=== PATIENT | male | born 1990 | race Caucasian/White ===

== ENCOUNTER 2016-09-09 13:56 | Emergency (ER) | payer MEDICAID ==
--- NOTE | 2016-09-09 17:52 | EDPHY ---
H & P Smoking Status: Current every day smoker Time Seen by Provider: 09/09/16 15:34 HPI/ROS: CHIEF COMPLAINT: Neck pain HISTORY OF PRESENT ILLNESS: 26-year-old male presents to the emergency department complaining of right-sided neck pain over last 24 hours. The patient thinks that he slept funny on his neck and now has pain especially with range of motion. Is isolated just to the right side. Patient is concerned because he has a history of a previous broken cervical spine from the police 2 years ago. He has not had follow-up for this. He denies chest pain or difficulty breathing. Denies headache. Denies any other reported trauma. Denies paresthesias in upper lower extremities. REVIEW OF SYSTEMS: Constitutional: No fever, no chills. Eyes: No double or blurry vision. ENT: No sore throat. Respiratory: No cough, no shortness of breath. Cardiac: No chest pain. Gastrointestinal: No abdominal pain, vomiting or diarrhea. Genitourinary: No dysuria. Musculoskeletal: Neck pain as above. No back pain. Skin: No rashes. Neurological: No headache. (Nanda Bloom) Past Medical/Surgical History: Bipolar, schizophrenia, hepatitis C (Nanda Bloom) Social History: Single (Nanda Bloom) Physical Exam: General Appearance: Alert, no distress. No visible signs of trauma to his head. Patient refused vital signs. Eyes: Pupils equal and round. Extraocular motions are all intact. ENT: Mouth: Mucous membranes moist. Respiratory: No wheezing, rhonchi, or rales, lungs are clear to auscultation. Cardiovascular: Regular rate and rhythm. Gastrointestinal: Abdomen is soft and nontender, no masses, no rebound or guarding, bowel sounds normal. Neurological: Alert and oriented x 3, cranial nerves II through XII grossly intact Skin: Warm and dry, no rashes. Musculoskeletal: No palpable bony tenderness along cervical spine. No palpable crepitus noted. Pain with laterally bending his neck to the left and right. Pain with rotation especially to his right shoulder. Extremities: Full range of motion and no peripheral edema. Normal and equal strength for the upper extremities bilaterally. Psychiatric: Patient is oriented X 3, there is no agitation. (Nanda Bloom) Constitutional: O2 Delivery Mode Room Air Allergies/Adverse Reactions: No Known Allergies Allergy (Verified 09/09/16 14:06) Home Medications: Medication Instructions Recorded Cyclobenzaprine [Flexeril] 10 mg PO TIDPRN PRN #12 tab 09/09/16 Medical Marijuana 09/09/16 Medical Decision Making - Diagnostics Imaging: Discussed imaging studies w/ extension clerk Radiologist, I viewed and interpreted images myself ED Course/Re-evaluation: 26-year-old male presents to the emergency department with neck pain. Patient has some mild pain with palpation along the lateral aspect of the right side of his neck. X-rays were obtained given his past history of possible cervical spine fracture. X-rays were negative. Patient will be discharged with muscle relaxers and anti-inflammatories. He was given primary care referral. I do not think any other imaging is necessary. (Nanda Bloom) Differential Diagnosis: Including but not limited to torticollis, fracture, dislocation, contusion, sprain (Nanda Bloom) Other Provider: The patient was evaluated and managed by the Physician Gas And Oil Checker/ Nurse Practitioner. My co-signature indicates that I have reviewed this chart and I agree with the findings and plan of care as documented. I am the secondary supervising physician. (Tonja Gonzales) Departure - Departure Disposition: Home, Routine, Self-Care Clinical Impression: Acute torticollis Condition: Good Instructions: Spasmodic Torticollis (ED) Additional Instructions: Ibuprofen 600 mg every 8 hours as needed for pain. Flexeril as needed for muscular spasm. Activity as tolerated. Follow up with [facility] this week to recheck. Return if you developed worsening neck pain, numbness or tingling in her fingers, or if you feel worse in any way. Referrals: [facility],. [Clinic] - As per Instructions Prescriptions: Cyclobenzaprine [Flexeril] 10 mg PO TIDPRN PRN #12 tab PRN Reason: Spasms
== END 2016-09-09 18:11 | disposition home or self-care (01) ==
DX: M43.6 Torticollis (principal); F17.200 Nicotine dependence, unspecified, uncomplicated

== ENCOUNTER 2016-12-25 13:26 | Emergency (ER) | payer MEDICAID ==
[2016-12-25] MEDS ORDERED: OLANZapine DISINTEGR 5 MG TAB PO ONE (13:56)
--- NOTE | 2016-12-25 13:58 | EDPHY ---
HPI/HX/ROS/PE/MDM Narrative: CHIEF COMPLAINT: Altered mental status, M1 hold HPI: The patient is a 26-year-old male with known history of schizophrenia. He is brought to the emergency department by [employer] on an M1 hold. He was apparently found confused and hallucinating in the [employer] [place]. Police was contacted and he appeared extremely disoriented and unable to care for self. Further history is unobtainable from patient. REVIEW OF SYSTEMS: Unable to obtain secondary to AMS. PMH: Schizophrenia SOCIAL HISTORY: Per chart, history of polysubstance abuse. PHYSICAL EXAM: General:Patient is alert, in no acute distress. 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 Further exam made difficult by patient non-cooperation. Maladorous and unkempt. ENT:Eyes are normal to inspection. ENT inspection normal. Neck: Normal inspection. Full range of motion. Respiratory:No respiratory distress. Extremities: Normal appearance. Full range of motion. Normal gait. Neuro: Oriented x3. Normal motor function. Normal sensory function. (Shaun Grant) ED Course: Care assumed from Juanita at 1430 with psych evaluation pending. 2038: The patient had comprehensive mental health evaluation and is the recommendation of the game artist and the [facility] consultant psychiatrist Dr. Chan that hold be vacated, and discharge the patient with outpatient follow-up. Does not appear to meet criteria for 72 hour mental health hold at this time. ( Erick Milton) - Data Points Laboratory Results: Laboratory Results 12/25/16 13:45 12/25/16 13:45 12/25/16 12/25/16 12/25/16 14:35 13:45 13:45 WBC 6.95 10^3/uL 10^3/uL (3.80-9.50) RBC 5.37 10^6/uL 10^6/uL (4.40-6.38) Hgb 14.9 g/dL g/dL (13.7-17.5) Hct 45.7 % % (40.0-51.0) MCV 85.1 fL fL (81.5-99.8) MCH 27.7 pg L pg (27.9-34.1) MCHC 32.6 g/dL g/dL (32.4-36.7) RDW 12.9 % % (11.5-15.2) Plt Count 239 10^3/uL 10^3/uL (150-400) MPV 9.5 fL fL (8.7-11.7) Neut % (Auto) 49.6 % % (39.3-74.2) Lymph % (Auto) 39.1 % % (15.0-45.0) [place] % (Auto) 9.1 % % (4.5-13.0) Eos % (Auto) 1.3 % % (0.6-7.6) Baso % (Auto) 0.6 % % (0.3-1.7) Nucleat RBC Rel Count 0.0 % % (0.0-0.2) Absolute Neuts (auto) 3.45 10^3/uL 10^3/uL (1.70-6.50) Absolute Lymphs (auto) 2.72 10^3/uL 10^3/uL (1.00-3.00) Absolute Monos (auto) 0.63 10^3/uL 10^3/uL (0.30-0.80) Absolute Eos (auto) 0.09 10^3/uL 10^3/uL (0.03-0.40) Absolute Basos (auto) 0.04 10^3/uL 10^3/uL (0.02-0.10) Absolute Nucleated RBC 0.00 10^3/uL 10^3/uL (0-0.01) Immature Gran % 0.3 % % (0.0-1.1) Immature Gran # 0.02 10^3/uL 10^3/uL (0.00-0.10) Sodium 142 mEq/L mEq/L (134-144) Potassium 4.0 mEq/L mEq/L (3.5-5.2) Chloride 104 mEq/L mEq/L (97-110) Carbon Dioxide 23 mEq/l mEq/l (22-31) Anion Gap 15 mEq/L mEq/L (8-16) BUN 17 mg/dL mg/dL (7-23) Creatinine 0.9 mg/dL mg/dL (0.7-1.3) Estimated GFR > 60 Glucose 90 mg/dL mg/dL (70-100) Calcium 9.9 mg/dL mg/dL (8.5-10.4) Urine Opiates Screen NEGATIVE (NEGATIVE) Urine Barbiturates NEGATIVE (NEGATIVE) Ur Phencyclidine Scrn NEGATIVE (NEGATIVE) Ur Amphetamine Screen NEGATIVE (NEGATIVE) U Benzodiazepines Scrn NEGATIVE (NEGATIVE) Urine Cocaine Screen NEGATIVE (NEGATIVE) U Marijuana (THC) Screen NON-NEGATIVE H (NEGATIVE) Ethyl Alcohol < 10 mg/dL mg/dL (0-10) Medications Given: Discontinued Medications Olanzapine (Zyprexa Zydis) 5 mg PO EDNOW ONE Stop: 12/25/16 13:57 Last Admin: 12/25/16 14:22 Dose: 5 mg General Time Seen by Provider: 12/25/16 13:49 Initial Vital Signs: Initial Vital Signs Temperature (C) 36.8 C 12/25/16 13:53 Heart Rate 95 12/25/16 13:53 Respiratory Rate 16 12/25/16 13:53 Blood Pressure 108/74 12/25/16 13:53 O2 Sat (%) 98 12/25/16 13:53 O2 Delivery Mode Room Air Allergies/Adverse Reactions: No Known Allergies Allergy (Verified 09/09/16 14:06) Home Medications: Medication Instructions Recorded Cyclobenzaprine [Flexeril] 10 mg PO TIDPRN PRN #12 tab 09/09/16 Medical Marijuana 09/09/16 Departure - Departure Disposition: Home, Routine, Self-Care Clinical Impression: Schizoaffective disorder Qualifiers: Schizoaffective disorder type: unspecified Qualified Code(s): F25.9 - Schizoaffective disorder, unspecified Condition: Good Instructions: Schizoaffective Disorder (ED) Referrals: [facility],. [Clinic] - As per Instructions
[2016-12-25 14:04] LABS: % IMMATURE GRANULYOCYTES 0.3 % (0.0-1.1); ABSOLUTE IMMATURE GRANULOCYTES 0.02 10^3/uL (0.00-0.10); ADD DIFF? NO; ADD MORPH? NO; ADD SCAN? NO; ATYPICAL LYMPHOCYTE FLAG 20 (0-99); FRAGMENT RBC FLAG 0 (0-99); HEMATOCRIT 45.7 % (40.0-51.0); HEMOGLOBIN 14.9 g/dL (13.7-17.5); LEFT SHIFT FLG 0 (0-99); LIPEMIA HEMOLYSIS FLAG 80 (0-99); MEAN CELL HEMOGLOBIN 27.7 pg (27.9-34.1); MEAN CELL HEMOGLOBIN CONCENTR. 32.6 g/dL (32.4-36.7); MEAN CELL VOLUME 85.1 fL (81.5-99.8); MEAN PLATELET VOLUME 9.5 fL (8.7-11.7); PLATELET CLUMPS FLAG 10 (0-99); PLATELET COUNT 239 10^3/uL (150-400); RED BLOOD CELL COUNT 5.37 10^6/uL (4.40-6.38); RED CELL DISTRIBUTION WIDTH 12.9 % (11.5-15.2)
[2016-12-25 14:15] LABS: ANION GAP 15 mEq/L (8-16); CALCIUM 9.9 mg/dL (8.5-10.4); CARBON DIOXIDE 23 mEq/l (22-31); CHLORIDE 104 mEq/L (97-110); CREATININE 0.9 mg/dL (0.7-1.3); ETHANOL SERUM < 10 mg/dL (0-10); GLOMERULAR FILTRATION RATE > 60; GLUCOSE 90 mg/dL (70-100); SODIUM 142 mEq/L (134-144)
[2016-12-25 16:14] VITALS: RESP 18
[2016-12-25 21:35] VITALS: BP 134/84; PULSE 86; TEMP 97.9; O2SAT 95
== END 2016-12-25 21:37 | disposition home or self-care (01) ==
DX: F25.9 Schizoaffective disorder, unspecified (principal)
CPT/HCPCS: 80305; G0480

== ENCOUNTER 2017-03-03 16:18 | Emergency (ER) | payer MEDICAID ==
--- NOTE | 2017-03-03 16:31 | EDPHY ---
H & P Stated Complaint: M1 - Failure to care for self - Personal History Current Tetanus Diphtheria and Acellular Pertussis (TDAP): Yes Tetanus Vaccine Date: Within 7 years per pt - Medical/Surgical History Hx Asthma: No Hx Chronic Respiratory Disease: No Hx Diabetes: No Hx Cardiac Disease: No Hx Renal Disease: No Hx Cirrhosis: No Hx Alcoholism: No Hx HIV/AIDS: No Hx Splenectomy or Spleen Trauma: No Other PMH: PMH: Bipolar,schizophrania, hep C, schizo affective disorder, depression. PSH: left wrist surgery - Social History Smoking Status: Current every day smoker Time Seen by Provider: 03/03/17 16:20 HPI/ROS: CHIEF COMPLAINT: "Don't take my spirit away" HISTORY OF PRESENT ILLNESS: 26-year-old male known history of schizophrenia, homelessness, arrives on M1 hold for being gravely disabled. History is limited from the patient self is repeatedly talks about his spirit. Denies illicit drug or alcohol use. He denies complaints of physical pain. Denies suicidal ideation. Denies homicidal ideation. Per the M1 report the patient has been noncompliant with medications, states that he was up all night texting nonsensically with his father, went to his father's place of business an lb on the door, screaming profanities REVIEW OF SYSTEMS: A ten point review of systems was performed and is negative with the exception of the items mentioned in the HPI PAST MEDICAL & SURGICAL HISTORY: Schizophrenia. SOCIAL HISTORY: homeless. PHYSICAL EXAM (Prior to examination, patient consented to physical exam, hands were washed and my usual and customary physical exam procedures followed) 1) GENERAL: Poorly kept, foul smelling, dirty, rapid, flight of ideas 2) HEAD: Normocephalic, atraumatic 3) HEENT: Pupils equal, round, reactive to light bilaterally. Sclera anicteric. 4) NECK: Full range of motion, no meningeal signs. 5) LUNGS: Clear auscultation bilaterally, no wheezes, no rhonchi, no retractions. 6) HEART: Regular rate and rhythm, no murmur, no heave, no gallop. 7) ABDOMEN: No guarding, no rebound, no focal tenderness,, 8) MUSCULOSKELETAL: Moving all extremities, no focal areas of tenderness, no obvious trauma. No peripheral edema or discoloration. 9) BACK: no visual or palpable abnormality. 10) SKIN: No rash, no petechiae. 11) Psychiatric: Patient is oriented X 3, he is intermittently, with rapid speech, flight of ideas, appears to be responding to internal stimuli DIFFERENTIAL DIAGNOSIS: in no particular include but limited to jaime, psychosis, depression, suicidal ideation, homicidal ideation (Chase Fuller Natalee) Constitutional: Initial Vital Signs Temperature (C) 37.1 C 03/03/17 16:23 Heart Rate 85 03/03/17 16:23 Respiratory Rate 18 03/03/17 16:23 Blood Pressure 130/65 H 03/03/17 16:23 O2 Sat (%) 98 03/03/17 16:23 O2 Delivery Mode Room Air Allergies/Adverse Reactions: No Known Allergies Allergy (Verified 09/09/16 14:06) Home Medications: Medication Instructions Recorded NK [No Known Home Meds] 03/03/17 Medical Decision Making ED Course/Re-evaluation: 10:30 p.m.: Mental health global head advertiser solutions has recommended patient be admitted. Midnight: Care turned over to Dr. Juan Martines. (Chase Fuller Natalee) Patient has been accepted by Dr. Escobedo, at [facility]. EMTALA filled out. Appropriate transfer to be set up. (Juan Martines) - Data Points Laboratory Results: Laboratory Results 03/03/17 17:05 03/03/17 17:05 03/03/17 03/03/17 03/03/17 17:05 17:05 17:05 WBC 6.04 10^3/uL 10^3/uL (3.80-9.50) RBC 5.10 10^6/uL 10^6/uL (4.40-6.38) Hgb 14.3 g/dL g/dL (13.7-17.5) Hct 43.8 % % (40.0-51.0) MCV 85.9 fL fL (81.5-99.8) MCH 28.0 pg pg (27.9-34.1) MCHC 32.6 g/dL g/dL (32.4-36.7) RDW 13.2 % % (11.5-15.2) Plt Count 245 10^3/uL 10^3/uL (150-400) MPV 9.1 fL fL (8.7-11.7) Neut % (Auto) 54.4 % % (39.3-74.2) Lymph % (Auto) 34.9 % % (15.0-45.0) [place] % (Auto) 9.3 % % (4.5-13.0) Eos % (Auto) 0.5 % L % (0.6-7.6) Baso % (Auto) 0.7 % % (0.3-1.7) Nucleat RBC Rel Count 0.0 % % (0.0-0.2) Absolute Neuts (auto) 3.29 10^3/uL 10^3/uL (1.70-6.50) Absolute Lymphs (auto) 2.11 10^3/uL 10^3/uL (1.00-3.00) Absolute Monos (auto) 0.56 10^3/uL 10^3/uL (0.30-0.80) Absolute Eos (auto) 0.03 10^3/uL 10^3/uL (0.03-0.40) Absolute Basos (auto) 0.04 10^3/uL 10^3/uL (0.02-0.10) Absolute Nucleated RBC 0.00 10^3/uL 10^3/uL (0-0.01) Immature Gran % 0.2 % % (0.0-1.1) Immature Gran # 0.01 10^3/uL 10^3/uL (0.00-0.10) Sodium 140 mEq/L mEq/L (134-144) Potassium 4.2 mEq/L mEq/L (3.5-5.2) Chloride 102 mEq/L mEq/L (97-110) Carbon Dioxide 25 mEq/l mEq/l (22-31) Anion Gap 13 mEq/L mEq/L (8-16) BUN 18 mg/dL mg/dL (7-23) Creatinine 1.3 mg/dL mg/dL (0.7-1.3) Estimated GFR > 60 Glucose 82 mg/dL mg/dL (70-100) Calcium 9.5 mg/dL mg/dL (8.5-10.4) Salicylates < 1.0 mg/dL L mg/dL (2.0-20.0) Urine Opiates Screen NEGATIVE (NEGATIVE) Acetaminophen < 10 mcg/mL L mcg/mL (10-30) Urine Barbiturates NEGATIVE (NEGATIVE) Ur Phencyclidine Scrn NEGATIVE (NEGATIVE) Ur Amphetamine Screen NEGATIVE (NEGATIVE) U Benzodiazepines Scrn NEGATIVE (NEGATIVE) Urine Cocaine Screen NEGATIVE (NEGATIVE) U Marijuana (THC) Screen NON-NEGATIVE H (NEGATIVE) Ethyl Alcohol < 10 mg/dL mg/dL (0-10) Medications Given: Discontinued Medications Lorazepam (Ativan) 2 mg PO EDNOW ONE Stop: 03/03/17 17:14 Last Admin: 03/03/17 18:44 Dose: Not Given Olanzapine (Zyprexa Zydis) 10 mg PO EDNOW ONE Stop: 03/03/17 16:44 Last Admin: 03/03/17 18:44 Dose: Not Given Departure - Departure Disposition: Other Psych, Not [place] Clinical Impression: Acute psychosis, Noncompliance with medication regimen Condition: Fair Referrals: NONE *PRIMARY CARE P,. [Primary Care Provider] - As per Instructions
[2017-03-03] MEDS ORDERED: OLANZapine DISINTEGR 10 MG TAB PO ONE (16:43)
[2017-03-03 17:08] LABS: % IMMATURE GRANULYOCYTES 0.2 % (0.0-1.1); ABSOLUTE IMMATURE GRANULOCYTES 0.01 10^3/uL (0.00-0.10); ADD DIFF? NO; ADD MORPH? NO; ADD SCAN? NO; ATYPICAL LYMPHOCYTE FLAG 10 (0-99); FRAGMENT RBC FLAG 0 (0-99); HEMATOCRIT 43.8 % (40.0-51.0); HEMOGLOBIN 14.3 g/dL (13.7-17.5); LEFT SHIFT FLG 0 (0-99); LIPEMIA HEMOLYSIS FLAG 80 (0-99); MEAN CELL HEMOGLOBIN CONCENTR. 32.6 g/dL (32.4-36.7); MEAN CELL VOLUME 85.9 fL (81.5-99.8); MEAN PLATELET VOLUME 9.1 fL (8.7-11.7); PLATELET CLUMPS FLAG 0 (0-99); PLATELET COUNT 245 10^3/uL (150-400); RED CELL DISTRIBUTION WIDTH 13.2 % (11.5-15.2)
[2017-03-03 17:11] VITALS: RESP 18
[2017-03-03] MEDS ORDERED: LORazepam 1 MG TAB PO ONE (17:13)
[2017-03-03 17:25] LABS: ANION GAP 13 mEq/L (8-16); CALCIUM 9.5 mg/dL (8.5-10.4); CARBON DIOXIDE 25 mEq/l (22-31); CHLORIDE 102 mEq/L (97-110); CREATININE 1.3 mg/dL (0.7-1.3); ETHANOL SERUM < 10 mg/dL (0-10); GLOMERULAR FILTRATION RATE > 60; GLUCOSE 82 mg/dL (70-100); POTASSIUM 4.2 mEq/L (3.5-5.2); SALICYLATE < 1.0 mg/dL (2.0-20.0); SODIUM 140 mEq/L (134-144)
[2017-03-04 02:48] VITALS: BP 118/64; PULSE 79; TEMP 97.5; O2SAT 96
== END 2017-03-04 03:28 ==
DX: F23 Brief psychotic disorder (principal); F17.200 Nicotine dependence, unspecified, uncomplicated; Z91.14 Patient's other noncompliance with medication regimen
CPT/HCPCS: 80305; G0480

== ENCOUNTER 2017-04-29 12:44 | Emergency (ER) | payer MEDICAID ==
[2017-04-29 13:09] VITALS: O2SAT 99
[2017-04-29 13:28] LABS: PLATELET COUNT 255 10^3/uL (150-400)
--- NOTE | 2017-04-29 14:18 | EDPHY ---
H & P Stated Complaint: M1 - manic - gravely disabled. - Personal History Current Tetanus/Diphtheria Vaccine: Yes Current Tetanus Diphtheria and Acellular Pertussis (TDAP): Yes Tetanus Vaccine Date: Within 7 years per pt - Medical/Surgical History Hx Asthma: No Hx Chronic Respiratory Disease: No Hx Diabetes: No Hx Cardiac Disease: No Hx Renal Disease: No Hx Cirrhosis: No Hx Alcoholism: No Hx HIV/AIDS: No Hx Splenectomy or Spleen Trauma: No Other PMH: PMH: Bipolar,schizophrania, hep C, schizo affective disorder, depression. PSH: left wrist surgery - Social History Smoking Status: Current every day smoker HPI/ROS: CHIEF COMPLAINT: M1 hold for jaime, inability to care for self HISTORY OF PRESENT ILLNESS: This patient is a 26 year old male with history of schizophrenia arriving via EMS on M1 hold for jaime. On my exam, he states he is here because he was rude to his care foster care social worker today and subsequently rude to a social worker psychiatric as well. He is pleasant currently. He states he is not taking any medication and is not supposed to be taking any medication. He denies suicidal or homicidal ideation. He denies visual or auditory hallucination. He is currently homeless, but wants to gain entrance to the [facility]. When asked about his recent hospitalization at [facility], the patient did not respond. Per M1 paperwork, the patient was gravely disabled and had disorganized thought. There was additional concern that he had not eaten or had anything to drink for several days. REVIEW OF SYSTEMS: A ten point review of systems was performed and is negative with the exception of the items mentioned in the HPI. Past medical history: Bipolar,schizophrenia, hepatitis C, schizoaffective disorder, depression Past surgical history: Left wrist surgery Family history: Noncontributory. Social history: Homeless. Lives in [place]. Single. General Appearance: Alert. Disheveled. Vital signs reviewed. 132/89, 102. Eyes: Pupils equal and round, no conjunctival injection, no discharge. Anicteric. ENT, Mouth: Mucous membranes are moist, no oropharyngeal erythema or edema. Neck: No lymphadenopathy, supple. Respiratory: Lungs are clear to auscultation; no wheezes, rales, or rhonchi. Cardiovascular: Regular rate and rhythm; no murmur, rub, or gallop. Gastrointestinal: Abdomen is soft and nontender, no masses or organomegaly, bowel sounds normal. Skin: Warm and dry, no rashes on exposed skin, normal color. Back: Nontender to palpation over the thoracolumbar spine. Extremities: No lower extremity edema, no calf tenderness or swelling. Neurological: Alert and oriented. Moving all four extremities easily and equally. Psychiatric: Normal affect. No agitation. (Shara Adler) Constitutional: Initial Vital Signs Temperature (C) 36.6 C 04/29/17 13:04 Heart Rate 102 H 04/29/17 13:04 Respiratory Rate 16 04/29/17 13:04 Blood Pressure 132/89 H 04/29/17 13:04 O2 Sat (%) 99 04/29/17 13:04 O2 Delivery Mode Room Air O2 (L/minute) 98 Allergies/Adverse Reactions: No Known Allergies Allergy (Verified 09/09/16 14:06) Home Medications: Medication Instructions Recorded NK [No Known Home Meds] 03/03/17 Medical Decision Making ED Course/Re-evaluation: 1223: This patient has been accepted at [facility] By Dr. Benjamin. EMTALA as been filled out. Appropriate transfer be set up. (Juan Martines) 14:25 Mental health director engineering at bedside. Patient is medically cleared to undergo mental health evaluation. (Shara Adler) Differential Diagnosis: Considered a differential diagnosis that includes but is not limited to medication noncompliance, bipolar disease, schizophrenia, auditory or visual hallucinations, suicidality, homicidality. (Shara Adler) Other Provider: 1600 care assumed by me from Dr. Adler pending mental health evaluation. [address] Martines pending mental health evaluation. No issues during my care this patient over the shift. (Sam Simon) Care transferred to Dr. Simon at 4:00 p.m.. (Shara Adler) - Data Points Laboratory Results: Laboratory Results 04/29/17 13:10 04/29/17 13:10 Departure - Departure Disposition: Other Psych, Not [place] Clinical Impression: Schizophrenia Referrals: Patient,NotPresent [Primary Care Provider] - As per Instructions Report Scribed for: Shara Adler Report Scribed by: Breana Nichole Date of Report: 04/29/17 Physician Review and Approval Statement: 04/29/17 14:18 Portions of this note were transcribed by the hospitalist medical director. I, Dr. Shara Adler, personally performed the history, physical exam, and medical decision- making; and confirmed the accuracy of the information in the transcribed note. ( Shara Adler)
[2017-04-29 21:10] VITALS: BP 100/50; PULSE 75; RESP 18; TEMP 97.5
== END 2017-04-30 02:26 ==
LOC: EDUNIT#
DX: F20.9 Schizophrenia, unspecified (principal); F17.200 Nicotine dependence, unspecified, uncomplicated
CPT/HCPCS: 80305; G0480

== ENCOUNTER 2017-10-29 16:27 | Inpatient (IN) | payer MEDICAID ==
--- NOTE | 2017-10-29 16:35 | EDPHY ---
H & P Source: Patient - Personal History Tetanus Vaccine Date: Within 7 years per pt - Medical/Surgical History Hx Asthma: No Hx Chronic Respiratory Disease: No Hx Diabetes: No Hx Cardiac Disease: No Hx Renal Disease: No Hx Cirrhosis: No Hx Alcoholism: No Hx HIV/AIDS: No Hx Splenectomy or Spleen Trauma: No Other PMH: PMH: Bipolar,schizophrania, hep C, schizo affective disorder, depression. PSH: left wrist surgery - Social History Smoking Status: Current every day smoker Time Seen by Provider: 10/29/17 16:35 HPI/ROS: CHIEF COMPLAINT: Gravely disabled HISTORY OF PRESENT ILLNESS: The patient presents to the ED secondary to grave disability. The patient reportedly was contacted by his mother today who was concerned about his well-being. The patient has a history of bipolar mood disorder by his report. Past medical records reports schizophrenia as a additional diagnosis. The patient reports he is typically followed at [facility]. He reports he does not take medications secondary to his personal choice. The patient denies any suicidal or homicidal ideation. Patient denies any acute medical complaints. He denies trauma. He denies active hallucinations. REVIEW OF SYSTEMS: A comprehensive 10 point review of systems is otherwise negative aside from elements mentioned in the history of present illness. (Elpidio Hutchinson) - Physical Exam Exam: General Appearance: Disheveled thin male Eyes: Pupils equal and round no pallor or injection ENT, Mouth: Mucous membranes moist Respiratory: There are no retractions, lungs are clear to auscultation Cardiovascular: Regular rate and rhythm Gastrointestinal: Abdomen is soft and nontender, no masses, bowel sounds normal Neurological: A&O, normal motor function, normal sensory exam, normal cranial nerves Skin: Warm and dry, no rashes Musculoskeletal: Neck is supple nontender Extremities: symmetrical, full range of motion Psychiatric: Disheveled, cooperative, denies suicidal or homicidal ideation, slightly disorganized (Elpidio Hutchinson) Constitutional: Initial Vital Signs Temperature (C) 36.6 C 10/29/17 16:35 Heart Rate 80 10/29/17 16:35 Respiratory Rate 20 10/29/17 16:35 Blood Pressure 134/82 H 10/29/17 16:35 O2 Sat (%) 96 10/29/17 16:35 O2 Delivery Mode Room Air Allergies/Adverse Reactions: No Known Allergies Allergy (Verified 09/09/16 14:06) Home Medications: Medication Instructions Recorded NK [No Known Home Meds] 03/03/17 Medical Decision Making ED Course/Re-evaluation: The patient presents to the ED secondary to grave disability. He was placed on an M1 psychiatric hold prior to arrival. The patient has been medically cleared for psychiatric evaluation. The patient did not require any medications in the emergency department. 9:00 p.m.: Psychiatric evaluation and disposition still pending. The patient will be turned over to Dr. Mclean at shift change. (Elpidio Hutchinson) I took over care of this patient at 9:00 p.m.. This patient is in the emergency department on an M1 hold secondary to grave disability. The patient has been medically cleared for psychiatric evaluation. Psychiatric evaluation pending currently. 11:00 p.m., this patient still awaits behavioral health evaluation. No issues during my care. Care turned over to Dr. Sam Simon at 11:00 p.m.. ( Cayden Mclean) Differential Diagnosis: Differential diagnosis considered includes psychosis, bipolar mood disorder, schizophrenia (Elpidio Hutchinson) Other Provider: [address] Mclean pending mental health evaluation. 2330 patient has been evaluated. Will require placement. [address] López pending placement. No issues during my care this patient overnight. (Sam Simon) - Data Points Laboratory Results: Laboratory Results 10/29/17 16:41 10/29/17 16:41 Departure - Departure Clinical Impression: Severe mixed bipolar I disorder with psychotic features Referrals: NONE *PRIMARY CARE P,. [Primary Care Provider] - As per Instructions
[2017-10-29 16:56] LABS: PLATELET COUNT 268 10^3/uL (150-400)
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
--- NOTE | 2017-10-29 23:19 | ASMTTCLDSP ---
TLC Discharge Disposition Disposition: Answers: Admit Disposition Notes: Notes: In consultation with [facility] ED Physician Nic Simon MD and on-call Psychiatrist Brian Yusuf MD both concurred that PT appears to meet 27-65 criteria requiring Psychiatric hospitalization as PT appears to be gravely disabled due to a mental illness condition. PT's rights were read to him,he was unable to sign. Discharge Concerns/Recommendations: Notes: In consultation with [facility] ED Physician Nic Simon MD and on-call Psychiatrist Brian Yusuf MD both concurred that PT appears to meet 27-65 criteria requiring Psychiatric hospitalization as PT appears to be gravely disabled due to a mental illness condition. PT's rights were read to him,he was unable to sign. Was patient given the Answers: Not applicable Inpatient Behavioral Health Prohibited Belongings List while in the ED? Type of Hold: Answers: M1/72-hour Hold Hold initiated by: Answers: Other Notes: Emmanuel Chawla LCSW Date Signed: 10/29/2017 11:18 PM Electronically Signed By:Elaine Ruby
[2017-10-30] MEDS ORDERED: ACETAMINOPHEN 325 MG TAB PO PRN (10:46)
[2017-10-30] MEDS ORDERED: MAGNESIUM HYDROXIDE 30 ML UDCUP PO PRN (10:46)
[2017-10-30] MEDS ORDERED: MAG HYDROX/AL HYDROX/SIMETH 30 ML UDCUP PO PRN (10:46)
[2017-10-30] MEDS ORDERED: LORazepam 1 MG TAB PO PRN (12:09)
[2017-10-30] MEDS ORDERED: LITHIUM CARBONATE ER 300 MG TAB PO SCH ×2 (12:15→21:00)
[2017-10-30] MEDS: NICOTINE POLACRILEX 2 MG GUM B PRN (12:40)
[2017-10-30] MEDS: OLANZapine DISINTEGR 10 MG TAB PO ONE ×2 (12:41→13:00)
[2017-10-30] MEDS: OLANZapine DISINTEGR 5 MG TAB PO ONE ×2 (12:41→13:00)
[2017-10-30] MEDS: LITHIUM CARBONATE ER 300 MG TAB PO SCH ×2 (12:42→20:14)
[2017-10-30] MEDS ORDERED: OLANZapine DISINTEGR 5 MG TAB PO PRN (12:53)
[2017-10-30] MEDS: QUEtiapine FUMARATE 50 MG TAB PO SCH ×2 (13:29→20:15)
[2017-10-30] MEDS ORDERED: HALOPERIDOL 10 MG TAB PO PRN (15:12)
[2017-10-30] MEDS ORDERED: HALOPERIDOL LACT 5 MG/ML INJ IM PRN (15:12)
[2017-10-30] MEDS ORDERED: LORazepam 2 MG/ML INJ IM PRN ×2 (15:14→15:22)
[2017-10-30] MEDS ORDERED: diphenhydrAMINE 50 MG CAP PO PRN ×2 (15:14→15:39)
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
[2017-10-30] MEDS: HALOPERIDOL 5 MG TAB PO PRN (15:25)
[2017-10-30] MEDS: LORazepam 1 MG TAB PO PRN (15:25)
[2017-10-30] MEDS ORDERED: OLANZapine DISINTEGR 10 MG TAB PO SCH (21:00)
--- NOTE | 2017-10-31 02:03 | BCON ---
[f rep st] BEHAVIORAL HEALTH CONSULTATION INTERNAL MEDICINE CONSULTATION DATE OF CONSULTATION: 10/30/2017 REFERRING PHYSICIAN: Rob Sosa MD REASON FOR REFERRAL: Medical clearance for inpatient behavioral health stay. HISTORY OF PRESENT ILLNESS: This patient was brought to the emergency department after his mother was concerned. I am not sure exactly how he got there. He was placed on M1 hold in the emergency department for being gravely disabled and he was evaluated by the mental health team and admitted for further psychiatric care. He has a psychiatric diagnoses of bipolar disorder with psychotic features versus schizophrenia and he is noncompliant with medications. He is currently without any acute complaints. He requests nicotine replacement in "a dissolvable solution." PAST MEDICAL HISTORY: 1. Mental health issues with diagnoses in the chart of bipolar disorder, schizophrenia, schizoaffective disorder, and depression. 2. Hepatitis C. PAST SURGICAL HISTORY: He has had a fractured left wrist with surgical repair. ALLERGIES: There are no known drug allergies. SOCIAL HISTORY: He lives in a house with roommates. He is not employed. He is a tobacco smoker and uses marijuana. FAMILY HISTORY: Noncontributory. REVIEW OF SYSTEMS: He denies fevers, chills, weight change, cough, dyspnea, nausea, vomiting, constipation, or diarrhea. Otherwise, a 10-point review of systems was negative. PHYSICAL EXAM: VITALS: Blood pressure is 133/75, heart rate is 66, respiratory rate is 16, oxygen saturation is 98% on room air. Temperature is 36.5 degrees centigrade. His weight is 54.4 kg for a body mass index of 19.4. GENERAL: This is a thin, unkempt man, appears his chronologic age, dressed in a green hospital smock, napping, easily awakened, cooperative and in no acute distress. HEENT: Extraocular movements are intact. Pupils are equal, round, reactive to light. Mucous membranes are moist. Dentition is in good condition. He has an uncrowded airway, Mallampati class I. NECK: Supple. HEART: Regular rate and rhythm with no murmurs, rubs, or gallops. LUNGS: Clear to auscultation bilaterally. ABDOMEN: Benign. EXTREMITIES: There is no cyanosis, clubbing, or edema. NEUROLOGIC: He is alert. Orientation was not tested. Cranial nerves 2 through 12 are grossly intact. There is no focal weakness and sensation is intact to light touch. LABORATORY STUDIES: From the emergency department, CBC overall was within normal limits. He had a slightly low MCH and MCHC of no clinical significance. Serum chemistry revealed normal renal function and electrolytes. Toxicology screen in the serum was negative for ethyl alcohol and in the urine was negative for any substances of abuse. ASSESSMENT AND RECOMMENDATIONS: 1. Mental health issues pending further evaluation and management per Psychiatry and the mental health team. 2. Tobacco dependence syndrome. Encouraged smoking cessation. 3. History of hepatitis C. He should avoid hepatic toxic drugs, though he can safely take acetaminophen up to 2 g per day. He should abstain from alcohol. I see no medical contraindications to this patient's continued stay on the inpatient behavioral health unit or to any psychiatric medications or procedures. Thank you very much for including me in the care of this patient and please do not hesitate to contact me or the hospitalist service should there be need for further medical evaluation. /[id number]/MODL MTDD
[2017-10-31] MEDS: LITHIUM CARBONATE ER 300 MG TAB PO SCH ×4 (07:46→18:00)
[2017-10-31] MEDS: QUEtiapine FUMARATE 50 MG TAB PO SCH ×3 (07:46→18:00)
[2017-10-31] MEDS: HALOPERIDOL 5 MG TAB PO PRN (07:56)
[2017-10-31] MEDS: LORazepam 1 MG TAB PO PRN (07:57)
--- NOTE | 2017-10-31 09:16 | ASMTBHMTP ---
LUTHER Master Treatment Plan Master Treatment Plan Answers: Mood Instability with for: Psychosis Date: 10/31/2017 Diagnosis on Admission: Bipolar I D/O with Psychotic Features 296.44 (F31.5) Expected length of stay: 3-5 Reason for admission: Notes: PT is a 27 year old unemployed, single, male, who states he is on disability and attending college at Per [facility] evaluation: [employer] and studying philosophy Per [employer] reports PT has a history of severe bipolar disorder with psychotic features with multiple hospitalizations since the age of 20. PT was unable to answer most of the assessment questions. PT became agitated and frustrate with the jboss developer and said he wanted to know why I couldn't "channel" the information. PT reported he lives in an house with 5 roommates. PT reports he doesn't take medications he is not suicidal or homicidal or gravely disabled. PT was laughing to himself and grimacing when asked questions. Patient's stated presenting problems: Notes: Pt. was staring at CC during the meeting and refused to engage and answer CC questions. Patient's goals for treatment: Notes: Pt. was staring at CC during the meeting and refused to engage and answer CC questions. Patient's strengths: Notes: Pt. was staring at CC during the meeting and refused to engage and answer CC questions. Identify supports outside of hospital: Notes: Unknown at this time. Discharge criteria: Notes: Pt. will demonstrate more stable mood by discharge. Initial disposition plan/considerations: Notes: Pt. presented as very disheveled with very strong body odor and unkempt long hair. Ct. refused to engage with this CC. Master Treatment Plan Required Signatures Psychiatrist signature: Answers: Psychiatrist: RN on-shift signature: Answers: RN: Patient signature: Answers: Patient: Date Signed: 10/31/2017 09:15 AM Electronically Signed By:Corry Callejas
--- NOTE | 2017-10-31 11:22 | SOAPPROG ---
SOAP Progress Note Assessment/Plan: Assessment: Bipolar Disorder with mood congruent psychotic features. Current jaime with psychosis. No improvement noted. (see subjective/objective note). Patient is not safe to discharge at this time as patient continues to exhibit signs of psychosis, and express agitation. Patient requires continued inpatient care because of current psychosis, and requires inpatient level of care to stabilize in order to no longer gravely disabled due to mental illness. Patient could benefit from continued inpatient hospitalization for crisis stabilization, safety, and medication evaluation. Plan: Review psychotropic medication treatment informed consent and recommendations. No medication changes at this time as more time is needed to determine ongoing tolerability and efficacy. Plan is to continue to observe patient for response and side effects from medications, and ongoing monitoring and evaluation. Next steps are for patient to meet with critical care rn to plan a safe discharge plan and establish outpatient services for ongoing treatment. Consider discharge next week if patient is in stable condition, safe, and has a safe discharge plan. PSYCHOTROPIC MEDICATION TREATMENT INFORMED CONSENT and RECOMMENDATIONS: Review nature of condition, diagnosis, and prognosis. Review nature and purpose of psychotropic medication treatment. Review type of psychotropic medications being ordered. Review risk and benefits of psychotropic medication treatment. Review probable length of time patient will need to take medications. Review risk and benefits of not undergoing psychotropic medication treatment. Review alternative treatments to psychotropic medications. Review psychotropic medications contraindications, drug-drug interactions, side effects, and importance of reporting any side effects to a psychiatric provider or nurse during inpatient hospitalization, and upon discharge to patients psychiatric outpatient provider, primary care provider, or other health animal care service worker. Review importance of asking a nurse, psychiatric provider, or primary care provider any questions or problems concerning the psychotropic medications. Verify patient understands the information that has been provided, and understands, accepts, and agrees to psychotropic medications. Review patients safety plan and importance of patient to report to staff while hospitalized if patient is ever a danger to self/others, or unable to care for self, and upon discharge, the importance for patient to contact [facility] or [facility], or go to the nearest emergency room, if patient is ever a danger to self/others, or unable to care for self. Recommend that upon discharge patient establish medication management treatment with a psychiatric provider, establishes routine therapy appointments, and follow-up with primary care provider. Verify patient understands and agrees to these recommendations. 10/31/17 11:21 Subjective: Following up with patient for evaluation of mood instability, psychosis, and safety. Patient screams, "My bill of rights is being threatened, I am a true [place]i, all I want is cannabis for me mental illness." Patient expresses the following psychiatric symptoms "super frustrated." Patient reports not taking medications as prescribed. Patient does not report undesirable side effects from the medications. Objective: Vital Signs Temp Pulse Resp BP Pulse Ox 36.5 C 66 16 133/75 H 98 10/30/17 08:51 10/30/17 08:51 10/30/17 08:51 10/30/17 08:51 10/30/17 08:51 NURSING REPORT: Consulted with nursing for update on patients progress in treatment. Nurses report patient is not engaged in treatment, is not attending groups, slept 7.5 hours, expresses the following psychiatric symptoms: agitation , exhibits the following psychiatric symptoms: disorganized, delusional; is eating meals, is taking not medications as prescribed with no report of side effects, with no s/s of EPS/akathisia. Nurses report patient required E-meds yesterday @ 1500 due to aggressive behavior on unit; patient required E-meds again this morning at ~ 0900 due to aggressive behavior. Patient refused AM scheduled medications. The patient is an under-nourished male looking older than chronological age. Attire is inappropriate and dress is hospital garb, and is disheveled and malodorous. Grooming status is inappropriate and disheveled and malodorous. Ambulation is independent. Gait is normal and coordinated. Posture is abnormal and tense. Eye contact is inappropriate, and excessive. Motor activity is overactive; with no involuntary movements. Attitude is uncooperative and hostile, angry. Patient appears disinterested and distractible, does not relate well to this interviewer. Language production is spontaneous. R/R/V normal. Rate is rapid, pressured. Latency of response is shortened, with irritable, angry tone, and high volume, and amount is hypertalkative. Articulation is clear. Patient reports mood as angry with expansive, inappropriate affect. Patients thought process is non-linear, illogical, disorganized, and tangential. Associations are loose. Patient does not report suicidal/homicidal thoughts, ideas, or plans. Patient denies auditory, visual hallucinations. Patient denies delusions; patient is exhibiting delusional thought and behavior. Patient does not appear to be attending to internal stimuli. Patients attention and concentration are poor. Patient is oriented to person, place, time. Patients insight is poor. Patients judgment is poor. - Time Spent With Patient Time Spent With Patient: 15 minutes, met with patient individually. - Pending Discharge Pending Discharge Within 24 Hours: No Pending Discharge Within 48 Hours: No ICD10 Worksheet Patient Problems: Problems Problem Status Onset Nicotine dependence Active Cannabis use disorder, severe, in controlled environment Acute Severe mixed bipolar I disorder with psychotic features Acute Severe manic bipolar I disorder with psychotic features Active
--- NOTE | 2017-10-31 12:22 | ASMTCMCOM ---
CM Note CM Note Notes: Ct. requested to speak with this CC. Ct. reported that he has an appointment with his [facility] manager of case Odessaaric Otoole on 11/04/17. He wanted to know if he would be able to make this appointment. CC explained that d/c depends on his progress and pending an MD decision. CC told ct. that if he is not ready to d/c on 11/04 CC will call [facility] and reschedule his appt. Ct. reported that he is having a hard time processing this information. Date Signed: 10/31/2017 12:21 PM Electronically Signed By:Corry Callejas
[2017-10-31] MEDS ORDERED: HALOPERIDOL LACT 5 MG/ML INJ IM PRN (15:12)
[2017-10-31] MEDS ORDERED: LORazepam 1 MG TAB PO PRN (15:14)
[2017-10-31] MEDS ORDERED: HALOPERIDOL 5 MG TAB PO PRN (15:14)
[2017-10-31] MEDS ORDERED: LORazepam 2 MG/ML INJ IM PRN (15:15)
--- NOTE | 2017-10-31 16:12 | PDMN ---
Medical Necessity Medical necessity: Pt meets inpt criteria per MD order and [facility] B-011, Other Psychotic Disorders, Adult: Inpatient Care, 3 days. Pt admitted on involuntary M1 hold due to being gravely disabled from current psychosis and mood instability which have been increasing and puts him at high safety risk, hx of bipolar disorder w/mood-congruent psychotic features. Med nec inpt hospitalization for safety, crisis stabilization, and medication evaluation.
[2017-10-31] MEDS: NICOTINE POLACRILEX 2 MG GUM B PRN ×3 (17:58→23:54)
[2017-11-01] MEDS: NICOTINE POLACRILEX 2 MG GUM B PRN ×4 (07:12→12:14)
[2017-11-01] MEDS: LITHIUM CARBONATE ER 300 MG TAB PO SCH ×3 (08:28→21:32)
[2017-11-01] MEDS: QUEtiapine FUMARATE 50 MG TAB PO SCH ×2 (08:29→12:56)
--- NOTE | 2017-11-01 15:06 | ASMTCMCOM ---
CM Note CM Note Notes: Pt. reports feeling "awful, angry and confused". Pt. stated he is a voluntary patient and will be discharging today. Pt. stated "this setting is too restricitive". Pt. reports "practicing observing budist". Pt. reports "hearing voices I like". Pt. reports when he "hears voices I don't like, I get help". Pt. stated his mother jumped out of the bushes at his place and asked him to come into the hospital this admission. Pt. stated he had sent him mother upsetting texts "when I was really baked". Pt. reports living in [place] with a "low income housing voucher". Pt. stated there was a break down in communication with the doctor, adding they had a debate about pt's medications. Pt. stated "anti-psychotics don't help. Cannibis does". Pt. stated "the doctor knows I need cannabis". Pt. stated in the past he would fill his anti-psychotic prescriptions and then flush them down the toilet. Pt. denied SI, HI, AVH and paranoia. Staff report pt. cheeking his medications twice today. Date Signed: 11/01/2017 03:05 PM Electronically Signed By:Jesenia Cerna
[2017-11-01] MEDS ORDERED: HALOPERIDOL LACT 5 MG/ML INJ IM PRN (18:07)
--- NOTE | 2017-11-01 18:18 | SOAPPROG ---
SOAP Progress Note Assessment/Plan: Assessment: Per Víctor Atkins's note: Assessment: Bipolar Disorder with mood congruent psychotic features. Current jaime with psychosis. No improvement noted. (see subjective/objective note). Patient is not safe to discharge at this time as patient continues to exhibit signs of psychosis, and express agitation. Patient requires continued inpatient care because of current psychosis, and requires inpatient level of care to stabilize in order to no longer gravely disabled due to mental illness. Patient could benefit from continued inpatient hospitalization for crisis stabilization, safety, and medication evaluation. Plan: 11/01/17 18:11 1. Patient has been in seclusion and received IM meds x 2. The last time was Friday d/t yelling, screaming, threatening and aggressive behavior after refusing to take medications. 2. RN reports that staff found [place] and Seroquel tabs in patient's wastebasket. RN then administered meds again, and did mouth check. RN heard patient flushing toilet very soon after he took meds. Patient admitted he had concealed meds in mouth and then flushed down toilet. 3. Will continue Emed Day #3. Will start patient on Risperdal m-tab 1mg SL QHS for psychosis and mood stability. Will order Haldol IM 10mg if patient refuses Risperdal m-tab. 4. Will change [place] to 300mg BID to reduce risk of adverse effects and improve tolerability. 5. Patient is refusing to remain in hospital when mental health hold expires. Will place on [facility] d/t continued grave disability and risk or harm to others. Have explained criteria for coming off hold including safe and appropriate behavior, improved mood stability, improved reality testing, ability to plan for treatment after discharge, decreased delusions. Subjective: Met with patient, reviewed chart and d/w staff. Patient introduces himself politely and request to discuss discharge. Patient refuses to remain in hospital when hold expires. He says "I won't take any meds." He told staff that "marijuana is the best antipsychotic." MD attempted to explain why that wasn't true, but patient didn't want to hear any further explanation. He also told staff, "I'm going to leave here and smoke pot." MD tried to explain the risks, particularly risk of worsening psychosis from THC use, but patient wasn't interested in what MD had to say. Objective: Vital Signs Temp Pulse Resp BP Pulse Ox 36.5 C 66 16 133/75 H 98 10/30/17 08:51 10/30/17 08:51 10/30/17 08:51 10/30/17 08:51 10/30/17 08:51 MSE: Affect: Irritable at times, pleasant at times Mood: "OK" TP: Disorganized , illogical TC: Denies any SI/HI, no AH/VH, still paranoid Insight/Judgment: Impaired - Time Spent With Patient Time Spent With Patient: 20" - Pending Discharge Pending Discharge Within 24 Hours: No Pending Discharge Within 48 Hours: No ICD10 Worksheet Patient Problems: Problems Problem Status Onset Nicotine dependence Active Cannabis use disorder, severe, in controlled environment Acute Severe mixed bipolar I disorder with psychotic features Acute Severe manic bipolar I disorder with psychotic features Active
[2017-11-01] MEDS: RISPERIDONE 1 MG ODT TAB SL SCH (21:32)
[2017-11-02] MEDS: LITHIUM CARBONATE ER 300 MG TAB PO SCH ×2 (08:38→22:08)
[2017-11-02] MEDS: NICOTINE POLACRILEX 2 MG GUM B PRN ×2 (10:36→13:56)
--- NOTE | 2017-11-02 14:05 | ASMTCMCOM ---
CM Note CM Note Notes: Pt. stated he feels "fine". Pt. stated he had a "horrible" night due to taking risperdal. Pt. stated risperdal "made me feel anxious". Pt. stated he is "protesting this care" stating he will not be eating meals. Pt. stated he will only have coffee and snacks. Pt. stated he "would like a discharge plan or to be released to my care transitions nurse". CC asked pt. about cheeking his medications, pt. stated "I have right to refuse medications". Pt. stated :this is complete lunacy" about his treatment. Pt. presents as disorganized, guarded, agitated, malodorous, and looking down throughout conversation. Staff report pt. drawing a large swastika on the wall of his room. Pt. now has a restriction of rights and is not allowed writing utensils Date Signed: 11/02/2017 02:04 PM Electronically Signed By:Jesenia Cerna
--- NOTE | 2017-11-02 17:23 | SOAPPROG ---
SOAP Progress Note Assessment/Plan: Assessment: Per Víctor Atkins'alba note: Assessment: Bipolar Disorder with mood congruent psychotic features. Current jaime with psychosis. No improvement noted. (see subjective/objective note). Patient is not safe to discharge at this time as patient continues to exhibit signs of psychosis, and express agitation. Patient requires continued inpatient care because of current psychosis, and requires inpatient level of care to stabilize in order to no longer gravely disabled due to mental illness. Patient could benefit from continued inpatient hospitalization for crisis stabilization, safety, and medication evaluation. Plan: 11/01/17 18:11 1. Patient has been in seclusion and received IM meds x 2. The last time was Friday d/t yelling, screaming, threatening and aggressive behavior after refusing to take medications. 2. RN reports that staff found [place] and Seroquel tabs in patient's wastebasket. RN then administered meds again, and did mouth check. RN heard patient flushing toilet very soon after he took meds. Patient admitted he had concealed meds in mouth and then flushed down toilet. 3. Will continue Emed Day #3. Will start patient on Risperdal m-tab 1mg SL QHS for psychosis and mood stability. Will order Haldol IM 10mg if patient refuses Risperdal m-tab. 4. Will change [place] to 300mg BID to reduce risk of adverse effects and improve tolerability. 5. Patient is refusing to remain in hospital when mental health hold expires. Will place on [facility] d/t continued grave disability and risk or harm to others. Have explained criteria for coming off hold including safe and appropriate behavior, improved mood stability, improved reality testing, ability to plan for treatment after discharge, decreased delusions. 11/02/17 17:18 1. Patient initially refused, but later accepted Risperdal m-tab last night. 2. Patient also took [place] 300mg this AM. 3. Will continue Emeds Day #4. Patient took marker and sherley swastika on wall in his room. He also started drawing inappropriate cartoon on wall by his bed. Patient still refuses to follow directions and rules on unit. 4. [facility] Subjective: Met with patient, reviewed chart and d/w staff. Patient ignored MD and kept walking right past MD without responding to MD's greeting. Patient complained about MD all morning for putting him on STC and ordering Emeds. MD overheard patient singing in his room and talking loudly to himself. This morning, patient took a marker and sherley a Swastika on wall of his room. Staff confronted patient about what he'd done, and his response was "how much do I owe you?" Patient showed no remorse or guilt for what he'd done. Objective: Vital Signs Temp Pulse Resp BP Pulse Ox 36.5 C 66 16 133/75 H 98 10/30/17 08:51 10/30/17 08:51 10/30/17 08:51 10/30/17 08:51 10/30/17 08:51 MSE: Affect: Irritable at times, cooperative at times Mood: Angry TP: Disorganized, illogical TC: Denies any SI/HI, no AH/VH, however patient appears to be responding to IS/ES when he is alone in his room, paranoid delusions still present Insight/Judgment: Poor - Time Spent With Patient Time Spent With Patient: 20" - Pending Discharge Pending Discharge Within 24 Hours: No Pending Discharge Within 48 Hours: No ICD10 Worksheet Patient Problems: Problems Problem Status Onset Nicotine dependence Active Cannabis use disorder, severe, in controlled environment Acute Severe mixed bipolar I disorder with psychotic features Acute Severe manic bipolar I disorder with psychotic features Active
[2017-11-02] MEDS ORDERED: HALOPERIDOL LACT 5 MG/ML INJ IM PRN (17:50)
[2017-11-02] MEDS: RISPERIDONE 1 MG ODT TAB SL SCH (22:08)
[2017-11-03] MEDS: NICOTINE POLACRILEX 2 MG GUM B PRN ×5 (07:07→22:01)
[2017-11-03] MEDS: LITHIUM CARBONATE ER 300 MG TAB PO SCH ×3 (08:12→22:57)
--- NOTE | 2017-11-03 09:27 | SOAPPROG ---
SOAP Progress Note Assessment/Plan: Assessment: Bipolar Disorder with mood congruent psychotic features. Current jaime with psychosis. No improvement noted. (see subjective/objective note). Patient is not safe to discharge at this time as patient continues to exhibit signs of psychosis, and express agitation. Patient requires continued inpatient care because of current psychosis, and requires inpatient level of care to stabilize in order to no longer gravely disabled due to mental illness. Patient could benefit from continued inpatient hospitalization for crisis stabilization, safety, and medication evaluation. Plan: Review psychotropic medication treatment informed consent and recommendations. No medication changes at this time as more time is needed to determine ongoing tolerability and efficacy. Plan is to continue to observe patient for response and side effects from medications, and ongoing monitoring and evaluation. Next steps are for patient to meet with hourly caregiver to plan a safe discharge plan and establish outpatient services for ongoing treatment. Consider discharge next week if patient is in stable condition, safe, and has a safe discharge plan. PSYCHOTROPIC MEDICATION TREATMENT INFORMED CONSENT and RECOMMENDATIONS: Review nature of condition, diagnosis, and prognosis. Review nature and purpose of psychotropic medication treatment. Review type of psychotropic medications being ordered. Review risk and benefits of psychotropic medication treatment. Review probable length of time patient will need to take medications. Review risk and benefits of not undergoing psychotropic medication treatment. Review alternative treatments to psychotropic medications. Review psychotropic medications contraindications, drug-drug interactions, side effects, and importance of reporting any side effects to a psychiatric provider or nurse during inpatient hospitalization, and upon discharge to patients psychiatric outpatient provider, primary care provider, or other health palliative care physician. Review importance of asking a nurse, psychiatric provider, or primary care provider any questions or problems concerning the psychotropic medications. Verify patient understands the information that has been provided, and understands, accepts, and agrees to psychotropic medications. Review patients safety plan and importance of patient to report to staff while hospitalized if patient is ever a danger to self/others, or unable to care for self, and upon discharge, the importance for patient to contact [facility] or [facility], or go to the nearest emergency room, if patient is ever a danger to self/others, or unable to care for self. Recommend that upon discharge patient establish medication management treatment with a psychiatric provider, establishes routine therapy appointments, and follow-up with primary care provider. Verify patient understands and agrees to these recommendations. 11/03/17 09:26 Subjective: Following up with patient for evaluation of mood instability, psychosis, and safety. Patient reports, "I plan to go to a movie, my [employer] bill is due, October 21 is a holiday, like 08/01, but different, and Cynthia is my neighbor." Objective: Vital Signs Temp Pulse Resp BP Pulse Ox 36.5 C 66 16 133/75 H 98 10/30/17 08:51 10/30/17 08:51 10/30/17 08:51 10/30/17 08:51 10/30/17 08:51 NURSING REPORT: Consulted with nursing for update on patients progress in treatment. Nurses report patient is not a model patient; not engaged in treatment, is not attending groups, slept 8 hours, expresses the following psychiatric symptoms: disorganized, nonsensical, tangential; is eating meals, is taking not medications as prescribed with no report of side effects, with no s/s of EPS/akathisia, denies SI/HI, A/V hallucinations and delusions. Nurses report patient cheeked medications on Friday and Friday; sherley a Swastika on his wall in him room, yelling, singing, talking to himself. The patient is an under-nourished male looking older than chronological age. Attire is inappropriate and dress is hospital garb, and is disheveled and malodorous. Grooming status is inappropriate and disheveled and malodorous. Ambulation is independent. Gait is normal and coordinated. Posture is abnormal and tense. Eye contact is inappropriate, and excessive. Motor activity is appropriate; with no involuntary movements. Attitude is uncooperative and silly. Patient appears disinterested and distractible, does not relate well to this interviewer. Language production is spontaneous. Rate is rapid, pressured. Latency of response is shortened, and amount is hypertalkative. Articulation is clear. Patient reports mood as good with expansive, inappropriate affect. Patients thought process is non-linear, illogical, disorganized, and tangential. Associations are loose. Patient does not report suicidal/homicidal thoughts, ideas, or plans. Patient denies auditory, visual hallucinations. Patient denies delusions; patient is exhibiting delusional thought and behavior. Patient does not appear to be attending to internal stimuli. Patients attention and concentration are poor. Patient is oriented to person, place, time. Patients insight is poor. Patients judgment is poor. - Time Spent With Patient Time Spent With Patient: 15 minutes, met with patient individually. - Pending Discharge Pending Discharge Within 24 Hours: No Pending Discharge Within 48 Hours: No ICD10 Worksheet Patient Problems: Problems Problem Status Onset Nicotine dependence Active Cannabis use disorder, severe, in controlled environment Acute Severe mixed bipolar I disorder with psychotic features Acute Severe manic bipolar I disorder with psychotic features Active
[2017-11-03] MEDS ORDERED: RISPERIDONE 1 MG ODT TAB SL SCH (10:35)
--- NOTE | 2017-11-03 11:45 | ASMTBHDC ---
Notes Note: Notes: CC was able to cancel therapist appt for tomorrow and reschedule both his medication and therapy appt. Client remains disorganized at times on the unit, etc. See below: Follow up with: [facility] [address] [place] [address] Therapist Appt: with Odessa Otoole on FridayNovember 18 (11/28/17) at 3:30pm Medication Appt: with Dr. Elis Palacio on FridayNovember 21 (11/21/17) at 9am Date Signed: 11/03/2017 11:44 AM Electronically Signed By:Louie Callahan
[2017-11-03] MEDS: RISPERIDONE 1 MG ODT TAB SL SCH ×2 (12:22→19:53)
[2017-11-04] MEDS ORDERED: OLANZapine 10 MG/2 ML VIAL IM PRN ×5 (07:59→12:06)
[2017-11-04] MEDS ORDERED: OLANZapine DISINTEGR 10 MG TAB PO PRN ×2 (07:59→12:04)
[2017-11-04] MEDS: RISPERIDONE 1 MG ODT TAB SL SCH ×2 (08:17→21:54)
[2017-11-04] MEDS: LITHIUM CARBONATE ER 300 MG TAB PO SCH ×2 (08:17→21:54)
--- NOTE | 2017-11-04 08:46 | SOAPPROG ---
SOAP Progress Note Assessment/Plan: Assessment: Bipolar Disorder with mood congruent psychotic features. Current jaime with psychosis. No improvement noted. (see subjective/objective note). Patient is not safe to discharge at this time as patient continues to exhibit signs of psychosis, and express agitation. Patient requires continued inpatient care because of current psychosis, and requires inpatient level of care to stabilize in order to no longer gravely disabled due to mental illness. Patient could benefit from continued inpatient hospitalization for crisis stabilization, safety, and medication evaluation. Plan: Review psychotropic medication treatment informed consent and recommendations. Start E-meds: Zyprexa Zydis 10 mg Q6HRS with IM Zyprexa back-up if patient refuses PO due to patients agitated and threatening behavior. Will not use Ativan as patient has hx of cheeking E-med oral (Haldol, Ativan, and Benadryl) and only taking Ativan (Haldol and Benadryl found in trash can and toilet), and hx of drug-seeking behavior by agitated behavior in order to receive Ativan. No medication changes at this time as more time is needed to determine ongoing tolerability and efficacy. Plan is to continue to observe patient for response and side effects from medications, and ongoing monitoring and evaluation. Next steps are for patient to meet with career guidance counselor to plan a safe discharge plan and establish outpatient services for ongoing treatment. Consider discharge next week if patient is in stable condition, safe, and has a safe discharge plan. PSYCHOTROPIC MEDICATION TREATMENT INFORMED CONSENT and RECOMMENDATIONS: Review nature of condition, diagnosis, and prognosis. Review nature and purpose of psychotropic medication treatment. Review type of psychotropic medications being ordered. Review risk and benefits of psychotropic medication treatment. Review probable length of time patient will need to take medications. Review risk and benefits of not undergoing psychotropic medication treatment. Review alternative treatments to psychotropic medications. Review psychotropic medications contraindications, drug-drug interactions, side effects, and importance of reporting any side effects to a psychiatric provider or nurse during inpatient hospitalization, and upon discharge to patients psychiatric outpatient provider, primary care provider, or other health residential child care counselor. Review importance of asking a nurse, psychiatric provider, or primary care provider any questions or problems concerning the psychotropic medications. Verify patient understands the information that has been provided, and understands, accepts, and agrees to psychotropic medications. Review patients safety plan and importance of patient to report to staff while hospitalized if patient is ever a danger to self/others, or unable to care for self, and upon discharge, the importance for patient to contact [facility] or [facility], or go to the nearest emergency room, if patient is ever a danger to self/others, or unable to care for self. Recommend that upon discharge patient establish medication management treatment with a psychiatric provider, establishes routine therapy appointments, and follow-up with primary care provider. Verify patient understands and agrees to these recommendations. 11/04/17 08:45 Subjective: Following up with patient for evaluation of mood instability, psychosis, and safety. Patient reports, "I not going to take anymore fing pills. F you doctor. I should just spit in your face to get the emergency pills." Objective: Vital Signs Temp Pulse Resp BP Pulse Ox 36.5 C 66 16 133/75 H 98 10/30/17 08:51 10/30/17 08:51 10/30/17 08:51 10/30/17 08:51 10/30/17 08:51 NURSING REPORT: Consulted with nursing for update on patients progress in treatment. Nurses report patient is not a model patient; not engaged in treatment, is not attending groups, slept 8 hours, expresses the following psychiatric symptoms: disorganized, nonsensical, tangential, agitated, and threatening; is eating meals, is taking not medications as prescribed with no report of side effects, with no s/s of EPS/akathisia, denies SI/HI, A/V hallucinations, and delusions. The patient is an under-nourished male looking older than chronological age. Attire is inappropriate and dress is hospital garb, and is disheveled and malodorous. Grooming status is inappropriate and disheveled and malodorous. Ambulation is independent. Gait is normal and coordinated. Posture is abnormal and tense. Eye contact is inappropriate, and excessive. Motor activity is appropriate; with no involuntary movements. Attitude is uncooperative and silly. Patient appears disinterested, distractible, threatening, and does not relate well to this interviewer. Language production is spontaneous. Rate is rapid, pressured. Latency of response is shortened, and amount is hypertalkative. Articulation is clear. Patient reports mood as good with expansive, inappropriate affect. Patients thought process is non- linear, illogical, disorganized, and tangential. Associations are loose. Patient does not report suicidal/homicidal thoughts, ideas, or plans. Patient denies auditory, visual hallucinations. Patient denies delusions; patient is exhibiting delusional thought and behavior. Patient does not appear to be attending to internal stimuli. Patients attention and concentration are poor. Patient is oriented to person, place, time. Patients insight is poor. Patients judgment is poor. - Time Spent With Patient Time Spent With Patient: 15 minutes, met with patient individually. - Pending Discharge Pending Discharge Within 24 Hours: No Pending Discharge Within 48 Hours: No ICD10 Worksheet Patient Problems: Problems Problem Status Onset Nicotine dependence Active Cannabis use disorder, severe, in controlled environment Acute Severe mixed bipolar I disorder with psychotic features Acute Severe manic bipolar I disorder with psychotic features Active
[2017-11-04] MEDS: NICOTINE POLACRILEX 2 MG GUM B PRN ×5 (11:02→20:53)
[2017-11-05] MEDS: NICOTINE POLACRILEX 2 MG GUM B PRN ×4 (07:37→16:56)
--- NOTE | 2017-11-05 08:14 | SOAPPROG ---
SOAP Progress Note Assessment/Plan: Assessment: Bipolar Disorder with mood congruent psychotic features. Current jaime with psychosis. No improvement noted. (see subjective/objective note). Patient is not safe to discharge at this time as patient continues to exhibit signs of psychosis, and express agitation. Patient requires continued inpatient care because of current psychosis, and requires inpatient level of care to stabilize in order to no longer gravely disabled due to mental illness. Patient could benefit from continued inpatient hospitalization for crisis stabilization, safety, and medication evaluation. Plan: Review psychotropic medication treatment informed consent and recommendations. No medication changes at this time as more time is needed to determine ongoing tolerability and efficacy. Patient continues to be agitated with unpredictable explosive behavior; will continue E-meds for patients safety, other patients safety, and staff safety. Plan is to continue to observe patient for response and side effects from medications, and ongoing monitoring and evaluation. Next steps are for patient to meet with resident care director to plan a safe discharge plan and establish outpatient services for ongoing treatment. Consider discharge next week if patient is in stable condition, safe, and has a safe discharge plan. PSYCHOTROPIC MEDICATION TREATMENT INFORMED CONSENT and RECOMMENDATIONS: Review nature of condition, diagnosis, and prognosis. Review nature and purpose of psychotropic medication treatment. Review type of psychotropic medications being ordered. Review risk and benefits of psychotropic medication treatment. Review probable length of time patient will need to take medications. Review risk and benefits of not undergoing psychotropic medication treatment. Review alternative treatments to psychotropic medications. Review psychotropic medications contraindications, drug-drug interactions, side effects, and importance of reporting any side effects to a psychiatric provider or nurse during inpatient hospitalization, and upon discharge to patients psychiatric outpatient provider, primary care provider, or other health chronic care nurse. Review importance of asking a nurse, psychiatric provider, or primary care provider any questions or problems concerning the psychotropic medications. Verify patient understands the information that has been provided, and understands, accepts, and agrees to psychotropic medications. Review patients safety plan and importance of patient to report to staff while hospitalized if patient is ever a danger to self/others, or unable to care for self, and upon discharge, the importance for patient to contact [facility] or [facility], or go to the nearest emergency room, if patient is ever a danger to self/others, or unable to care for self. Recommend that upon discharge patient establish medication management treatment with a psychiatric provider, establishes routine therapy appointments, and follow-up with primary care provider. Verify patient understands and agrees to these recommendations. 11/05/17 08:12 Subjective: Following up with patient for evaluation of mood instability, psychosis, and safety. Patient reports, "F you doc." Objective: Vital Signs Temp Pulse Resp BP Pulse Ox 36.5 C 66 16 133/75 H 98 10/30/17 08:51 10/30/17 08:51 10/30/17 08:51 10/30/17 08:51 10/30/17 08:51 NURSING REPORT: Consulted with nursing for update on patients progress in treatment. Nurses report patient is not a model patient; not engaged in treatment, is not attending groups, slept 8 hours, expresses the following psychiatric symptoms: disorganized, nonsensical, tangential, agitated; disruptive in group yesterday and had to be asked to leave, when leaving threw his drink cup on the floor; patient is eating meals, is taking medications as prescribed with no report of side effects, with no s/s of EPS/akathisia, denies SI/HI, A/V hallucinations, and delusions. The patient is an under-nourished male looking older than chronological age. Attire is inappropriate and dress is hospital garb, and is disheveled and malodorous. Grooming status is inappropriate and disheveled and malodorous. Ambulation is independent. Gait is normal and coordinated. Posture is abnormal and tense. Eye contact is inappropriate, and excessive. Motor activity is appropriate; with no involuntary movements. Patient raises his middle finger to this [employer]ING [employer]. Attitude is uncooperative and silly. Patient appears disinterested, distractible, threatening, and does not relate well to this interviewer. Language production is spontaneous. Rate is rapid, pressured. Latency of response is shortened, and amount is hypertalkative. Articulation is clear. Patient reports mood as good with expansive, inappropriate affect. Patients thought process is non-linear, illogical, disorganized, and tangential. Associations are loose. Patient does not report suicidal/homicidal thoughts, ideas, or plans. Patient denies auditory, visual hallucinations. Patient denies delusions; patient is exhibiting delusional thought and behavior. Patient does not appear to be attending to internal stimuli. Patients attention and concentration are poor. Patient is oriented to person, place, time. Patients insight is poor. Patients judgment is poor. - Time Spent With Patient Time Spent With Patient: 15 minutes, met with patient individually. - Pending Discharge Pending Discharge Within 24 Hours: No Pending Discharge Within 48 Hours: No ICD10 Worksheet Patient Problems: Problems Problem Status Onset Nicotine dependence Active Cannabis use disorder, severe, in controlled environment Acute Severe mixed bipolar I disorder with psychotic features Acute Severe manic bipolar I disorder with psychotic features Active
[2017-11-05] MEDS: LITHIUM CARBONATE ER 300 MG TAB PO SCH ×2 (08:57→21:30)
[2017-11-05] MEDS: RISPERIDONE 1 MG ODT TAB SL SCH (08:57)
[2017-11-05] MEDS ORDERED: OLANZapine 10 MG/2 ML VIAL IM PRN (12:39)
[2017-11-05] MEDS ORDERED: RISPERIDONE 2 MG ODT TAB SL SCH (21:00)
--- NOTE | 2017-11-06 07:52 | SOAPPROG ---
SOAP Progress Note Assessment/Plan: Assessment: Bipolar Disorder with mood congruent psychotic features. Current psychosis. Yuki improved, notably improved sleep. Overall slight improvement noted. (see subjective/objective note). Patient is not safe to discharge at this time as patient continues to exhibit signs of psychosis, and express agitation. Patient requires continued inpatient care because of current psychosis, and requires inpatient level of care to stabilize in order to no longer gravely disabled due to mental illness. Patient could benefit from continued inpatient hospitalization for crisis stabilization, safety, and medication evaluation. Plan: Review psychotropic medication treatment informed consent and recommendations. Continue titration of Risperidal, increase daily dose to 2 mg ODT as patient continues to present with psychosis and yuki and is tolerating current medications with no report of side effects and no signs of side effects. Consider leaving Risperidal at 2 mg po QD and 2 mg po QHS for one week before making changes. Patient continues to be agitated with unpredictable explosive behavior; will continue E-meds for patients safety, other patients safety, and staff safety. Plan is to continue to observe patient for response and side effects from medications, and ongoing monitoring and evaluation. Next steps are for patient to meet with acute care assistant to plan a safe discharge plan and establish outpatient services for ongoing treatment. Consider discharge next week if patient is in stable condition, safe, and has a safe discharge plan. PSYCHOTROPIC MEDICATION TREATMENT INFORMED CONSENT and RECOMMENDATIONS: Review nature of condition, diagnosis, and prognosis. Review nature and purpose of psychotropic medication treatment. Review type of psychotropic medications being ordered. Review risk and benefits of psychotropic medication treatment. Review probable length of time patient will need to take medications. Review risk and benefits of not undergoing psychotropic medication treatment. Review alternative treatments to psychotropic medications. Review psychotropic medications contraindications, drug-drug interactions, side effects, and importance of reporting any side effects to a psychiatric provider or nurse during inpatient hospitalization, and upon discharge to patients psychiatric outpatient provider, primary care provider, or other health critical care transport nurse. Review importance of asking a nurse, psychiatric provider, or primary care provider any questions or problems concerning the psychotropic medications. Verify patient understands the information that has been provided, and understands, accepts, and agrees to psychotropic medications. Review patients safety plan and importance of patient to report to staff while hospitalized if patient is ever a danger to self/others, or unable to care for self, and upon discharge, the importance for patient to contact [facility] or 911, or go to the nearest emergency room, if patient is ever a danger to self/others, or unable to care for self. Recommend that upon discharge patient establish medication management treatment with a psychiatric provider, establishes routine therapy appointments, and follow-up with primary care provider. Verify patient understands and agrees to these recommendations. 11/06/17 07:51 Subjective: Following up with patient for evaluation of mood instability, psychosis, and safety. Patient reports, "Farts that's how I am doing, my farts smell good. Want to smell them?" Objective: Vital Signs Temp Pulse Resp BP Pulse Ox 36.5 C 66 16 133/75 H 98 10/30/17 08:51 10/30/17 08:51 10/30/17 08:51 10/30/17 08:51 10/30/17 08:51 NURSING REPORT: Consulted with nursing for update on patients progress in treatment. Nurses report patient is not a model patient; not engaged in treatment, is not attending groups, slept 9 hours, expresses the following psychiatric symptoms: disorganized, nonsensical, tangential, agitated; disruptive and inappropriate in groups when attempts to attend groups; patient is eating meals, patient is not showering appropriately, is taking medications as prescribed with no report of side effects, with no s/s of EPS/akathisia, denies SI/HI, A/V hallucinations, and delusions. Patient is lying on floor between bed and wall with bed mattress on floor. The patient is an under-nourished male looking older than chronological age. Attire is inappropriate and dress is hospital garb, and is disheveled and malodorous. Grooming status is inappropriate and disheveled and malodorous. Ambulation is independent. Gait is normal and coordinated. Posture is abnormal and tense. Eye contact is inappropriate, and excessive. Motor activity is appropriate; with no involuntary movements. Attitude is uncooperative and silly. Patient appears disinterested, distractible, irritable , and does not relate well to this interviewer. Language production is spontaneous. R/RV normal. Articulation is clear. Patient reports mood as okay with expansive, inappropriate affect. Patients thought process is non- linear, illogical, disorganized, and tangential. Associations are loose. Patient does not report suicidal/homicidal thoughts, ideas, or plans. Patient denies auditory, visual hallucinations. Patient denies delusions; patient is exhibiting delusional thought content. Patient does not appear to be attending to internal stimuli. Patients attention and concentration are poor. Patient is oriented to person, place, time. Patients insight is poor. Patients judgment is poor. - Time Spent With Patient Time Spent With Patient: 15 minutes, met with patient individually. - Pending Discharge Pending Discharge Within 24 Hours: No Pending Discharge Within 48 Hours: No ICD10 Worksheet Patient Problems: Problems Problem Status Onset Nicotine dependence Active Cannabis use disorder, severe, in controlled environment Acute Severe mixed bipolar I disorder with psychotic features Acute Severe manic bipolar I disorder with psychotic features Active
[2017-11-06] MEDS ORDERED: RISPERIDONE 1 MG ODT TAB SL SCH ×2 (09:00)
[2017-11-06] MEDS: LITHIUM CARBONATE ER 300 MG TAB PO SCH ×2 (09:23→18:20)
[2017-11-06] MEDS ORDERED: OLANZapine 10 MG/2 ML VIAL IM PRN ×2 (11:01→13:33)
[2017-11-06] MEDS ORDERED: OLANZapine DISINTEGR 10 MG TAB PO PRN (11:01)
[2017-11-06] MEDS: NICOTINE POLACRILEX 2 MG GUM B PRN ×5 (11:25→21:33)
--- NOTE | 2017-11-06 13:20 | ASMTCMCOM ---
CM Note CM Note Notes: Treatment team meeting with client, charge nurse, doctor, provider, therapist and CC's. Client presents as disheveled, semi-alert, juvenile, pessimistic and negative outlook, while displaying a mostly flat affect. Also, client was displaying strange body language during meeting (facial muscles). Client lacks insight into his mental health condition and in denial about any substance use disorder, etc. Client will remain on the unit for additional time through the weekend and will be rescheduled for another meeting when client is closer to any discharge time frame.* Date Signed: 11/06/2017 01:19 PM Electronically Signed By:Louie Callahan
[2017-11-06] MEDS: RISPERIDONE 1 MG ODT TAB SL SCH (21:33)
--- NOTE | 2017-11-07 07:39 | SOAPPROG ---
SOAP Progress Note Assessment/Plan: Assessment: Bipolar Disorder with mood congruent psychotic features. Current psychosis. Yuki improved, notably improved sleep. Overall slight improvement noted. (see subjective/objective note). Patient is not safe to discharge at this time as patient continues to exhibit signs of psychosis, and express agitation. Patient requires continued inpatient care because of current psychosis, and requires inpatient level of care to stabilize in order to no longer gravely disabled due to mental illness. Patient could benefit from continued inpatient hospitalization for crisis stabilization, safety, and medication evaluation. Plan: Review psychotropic medication treatment informed consent and recommendations. Consider leaving Risperidal at 2 mg po BID for one week before making changes. Patient continues to be agitated with unpredictable explosive behavior; will continue E-meds for patients safety, other patients safety, and staff safety. Plan is to continue to observe patient for response and side effects from medications, and ongoing monitoring and evaluation. [place] level this AM, will make changes according to result. Next steps are for patient to meet with lawn care professional to plan a safe discharge plan and establish outpatient services for ongoing treatment. Consider discharge next week if patient is in stable condition, safe, and has a safe discharge plan. PSYCHOTROPIC MEDICATION TREATMENT INFORMED CONSENT and RECOMMENDATIONS: Review nature of condition, diagnosis, and prognosis. Review nature and purpose of psychotropic medication treatment. Review type of psychotropic medications being ordered. Review risk and benefits of psychotropic medication treatment. Review probable length of time patient will need to take medications. Review risk and benefits of not undergoing psychotropic medication treatment. Review alternative treatments to psychotropic medications. Review psychotropic medications contraindications, drug-drug interactions, side effects, and importance of reporting any side effects to a psychiatric provider or nurse during inpatient hospitalization, and upon discharge to patients psychiatric outpatient provider, primary care provider, or other health director of home care hospice. Review importance of asking a nurse, psychiatric provider, or primary care provider any questions or problems concerning the psychotropic medications. Verify patient understands the information that has been provided, and understands, accepts, and agrees to psychotropic medications. Review patients safety plan and importance of patient to report to staff while hospitalized if patient is ever a danger to self/others, or unable to care for self, and upon discharge, the importance for patient to contact [facility] or 1, or go to the nearest emergency room, if patient is ever a danger to self/others, or unable to care for self. Recommend that upon discharge patient establish medication management treatment with a psychiatric provider, establishes routine therapy appointments, and follow-up with primary care provider. Verify patient understands and agrees to these recommendations. 11/07/17 07:40 Subjective: Following up with patient for evaluation of mood instability, psychosis, and safety. Patient refused to meet with this [employer]. Objective: Vital Signs Temp Pulse Resp BP Pulse Ox 36.5 C 66 16 133/75 H 98 10/30/17 08:51 10/30/17 08:51 10/30/17 08:51 10/30/17 08:51 10/30/17 08:51 NURSING REPORT: Consulted with nursing for update on patients progress in treatment. Nurses report patient is not a model patient; not engaged in treatment, is not attending groups, slept 8 hours, expresses the following psychiatric symptoms: disorganized, nonsensical, tangential, agitated; disruptive and inappropriate in groups when attempts to attend groups and is asked to leave; patient is eating meals, is taking medications as prescribed with no report of side effects, with no s/s of EPS/akathisia, denies SI/HI, A/V hallucinations, and delusions. The patient is an under-nourished male looking older than chronological age. Attire is inappropriate and dress is hospital garb, and is disheveled and malodorous. Grooming status is inappropriate and disheveled and malodorous. Ambulation is independent. Gait is normal and coordinated. Posture is abnormal and tense. Eye contact is inappropriate, and excessive. Motor activity is appropriate; with no involuntary movements. Attitude is uncooperative and silly. Patient appears disinterested, distractible, irritable , and does not relate well to this interviewer. Language production is spontaneous. R/RV normal. Articulation is clear. Patient reports mood as okay with expansive, inappropriate affect. Patients thought process is non- linear, illogical, disorganized, and tangential. Associations are loose. Patient does not report suicidal/homicidal thoughts, ideas, or plans. Patient denies auditory, visual hallucinations. Patient denies delusions; patient is exhibiting delusional thought content. Patient does not appear to be attending to internal stimuli. Patients attention and concentration are poor. Patient is oriented to person, place, time. Patients insight is poor. Patients judgment is poor. - Time Spent With Patient Time Spent With Patient: 15 minutes, met with patient individually. - Pending Discharge Pending Discharge Within 24 Hours: No Pending Discharge Within 48 Hours: No ICD10 Worksheet Patient Problems: Problems Problem Status Onset Nicotine dependence Active Cannabis use disorder, severe, in controlled environment Acute Severe mixed bipolar I disorder with psychotic features Acute Severe manic bipolar I disorder with psychotic features Active
[2017-11-07] MEDS: LITHIUM CARBONATE ER 300 MG TAB PO SCH ×2 (09:22→21:53)
[2017-11-07] MEDS: RISPERIDONE 1 MG ODT TAB SL SCH ×2 (09:22→21:53)
[2017-11-07] MEDS: NICOTINE POLACRILEX 2 MG GUM B PRN ×2 (10:30→12:36)
[2017-11-07] MEDS ORDERED: OLANZapine 10 MG/2 ML VIAL IM PRN (14:05)
[2017-11-08] MEDS: NICOTINE POLACRILEX 2 MG GUM B PRN ×10 (08:29→22:52)
[2017-11-08] MEDS: RISPERIDONE 1 MG ODT TAB SL SCH ×2 (09:04→20:51)
[2017-11-08] MEDS: LITHIUM CARBONATE ER 300 MG TAB PO SCH ×2 (09:05→20:51)
--- NOTE | 2017-11-08 14:47 | SOAPPROG ---
SOAP Progress Note Assessment/Plan: Assessment: Per Víctor Atkins's note: Assessment: Bipolar Disorder with mood congruent psychotic features. Current jaime with psychosis. No improvement noted. (see subjective/objective note). Patient is not safe to discharge at this time as patient continues to exhibit signs of psychosis, and express agitation. Patient requires continued inpatient care because of current psychosis, and requires inpatient level of care to stabilize in order to no longer gravely disabled due to mental illness. Patient could benefit from continued inpatient hospitalization for crisis stabilization, safety, and medication evaluation. Plan: 11/08/17 14:41 1. Patient presents less irritable and agitated than last weekend, but more delusional and disengaged from reality. 2. Staff report patient has been vomiting up meds and rinsing mouth out after med administration. He is now on room restriction for 1 hr after meds so he can' t avoid taking meds. 3. His lithium level on 11/07/17 was < 0.2. Will recheck it next week. 4. Patient no longer on EMEDS since he has not demonstrated agitation, aggression or violent behavior since last Friday. He is still hostile, argumentative and confrontational at times, but states he is wiling to comply with treatment 5. [facility] Subjective: Met with patient, reviewed chart and d/w staff. Patient is wearing [facility] gown b/c he tore up his underwear and ripped zipper out of his jeans. He needs frequent direction from staff to keep his gown tied and closed. Patient has not been compliant with meds all week, rinsing out his mouth and vomiting up his meds. He is now on room restriction so he can't avoid taking his meds which he consented to take. He argued with staff earlier today about locking him out of his room, but later admitted he was trying to get rid of his meds. Objective: Vital Signs Temp Pulse Resp BP Pulse Ox 36.5 C 66 16 133/75 H 98 10/30/17 08:51 10/30/17 08:51 10/30/17 08:51 10/30/17 08:51 10/30/17 08:51 MSE: Affect: Irritable Mood: "OK" TP: Disorganized, illogical TC: Denies any SI/HI, no AH/VH, still delusional and paranoid Insight/Judgment: Impaired - Time Spent With Patient Time Spent With Patient: 20" - Pending Discharge Pending Discharge Within 24 Hours: No Pending Discharge Within 48 Hours: No ICD10 Worksheet Patient Problems: Problems Problem Status Onset Nicotine dependence Active Cannabis use disorder, severe, in controlled environment Acute Cannabis withdrawal Acute
--- NOTE | 2017-11-08 15:55 | ASMTBHDC ---
Notes Note: Notes: Patient has spent much of his day out on the milieu and going to some groups. He is malodorous and disheveled He is argumentative with staff. Staff reports that he has ripped up his clothes that he was given on the unit. He is nonsensical. He is on reverse room for one hour after taking his medications because he has been cheeking or throwing up his medications. Patient slept 4 hours last night. Date Signed: 11/08/2017 03:54 PM Electronically Signed By:Crys Cole
[2017-11-09] MEDS: NICOTINE POLACRILEX 2 MG GUM B PRN ×11 (00:04→22:20)
[2017-11-09] MEDS: RISPERIDONE 1 MG ODT TAB SL SCH ×3 (07:16→21:56)
[2017-11-09] MEDS: LITHIUM CARBONATE ER 300 MG TAB PO SCH ×2 (09:03→21:56)
--- NOTE | 2017-11-09 15:13 | SOAPPROG ---
SOAP Progress Note Assessment/Plan: Assessment: Per Víctor Atkins's note: Assessment: Bipolar Disorder with mood congruent psychotic features. Current jaime with psychosis. No improvement noted. (see subjective/objective note). Patient is not safe to discharge at this time as patient continues to exhibit signs of psychosis, and express agitation. Patient requires continued inpatient care because of current psychosis, and requires inpatient level of care to stabilize in order to no longer gravely disabled due to mental illness. Patient could benefit from continued inpatient hospitalization for crisis stabilization, safety, and medication evaluation. Plan: 11/08/17 14:41 1. Patient presents less irritable and agitated than last weekend, but more delusional and disengaged from reality. 2. Staff report patient has been vomiting up meds and rinsing mouth out after med administration. He is now on room restriction for 1 hr after meds so he can' t avoid taking meds. 3. His lithium level on 11/07/17 was < 0.2. Will recheck it next week. 4. Patient no longer on EMEDS since he has not demonstrated agitation, aggression or violent behavior since last Friday. He is still hostile, argumentative and confrontational at times, but states he is wiling to comply with treatment 5. [facility] 11/09/17 15:08 1. Patient has reportedly been taking both [place]-Bacavi and Risperdal. Staff are more confident he is actually ingesting meds since he's been on room reversal after med administration. 2. Patient continues to have arguments with staff and occasional outbursts. Last night he threw playing cards and phone at staff during argument. Today he has been appropriate and followed staff direction. 3. Treatment team wrote behavioral support plan to restrict patient's use of books, magazines, art supplies if he cannot maintain safe and appropriate behavior. Patient agreed that he would respect staff, peers and [facility] property. He requested [employer] puzzles and was more cooperative after clear limits and boundaries were established between patient and staff. 4. [facility] Subjective: Met with patient, reviewed chart and d/w staff. Patient was dancing in TV area by himself while music was playing in next room. He got into argument with staff last night and threw a phone. This AM, he wrapped his body in an entire roll of toilet paper and put his hospital gown. Since then, he has been more appropriate and followed staff's directions. He is now on behavioral support plan and staff have set limits on what supplies and resources he can have. Objective: Vital Signs Temp Pulse Resp BP Pulse Ox 36.8 C 97 20 138/83 H 95 11/09/17 06:00 11/09/17 06:00 11/09/17 06:00 11/09/17 06:00 11/09/17 06:00 MSE: Affect: Irritable, labile Mood: "Fine" TP: Disorganized, illogical TC: Denies any SI/HI, no AH/VH, but seems to respond to IS, delusional Insight/ Judgment: Impaired - Time Spent With Patient Time Spent With Patient: 15" - Pending Discharge Pending Discharge Within 24 Hours: No Pending Discharge Within 48 Hours: No ICD10 Worksheet Patient Problems: Problems Problem Status Onset Nicotine dependence Active Cannabis use disorder, severe, in controlled environment Acute Cannabis withdrawal Acute
[2017-11-10] MEDS: NICOTINE POLACRILEX 2 MG GUM B PRN ×11 (01:26→21:35)
[2017-11-10 06:44] VITALS: BP 132/80
[2017-11-10] MEDS: RISPERIDONE 1 MG ODT TAB SL SCH ×2 (07:50→21:35)
[2017-11-10] MEDS: LITHIUM CARBONATE ER 300 MG TAB PO SCH (07:50)
--- NOTE | 2017-11-10 08:00 | SOAPPROG ---
SOAP Progress Note Assessment/Plan: Assessment: Cannabis-induced psychosis. Cannabis withdrawal. Antisocial personality disorder. Bipolar Disorder with mood congruent psychotic features (from hx). R /O Bipolar Disorder. Patient has shown considerable improvement since admission likely due to clearing of psychosis from cannabis use. Improvement noted. (see subjective/objective note). Patient could benefit from continued inpatient hospitalization for crisis stabilization, safety, and medication evaluation; ensure stability and readiness to discharge. Plan: Review psychotropic medication treatment informed consent and recommendations. After reviewing options, risks, and benefits, patient agrees to continue current medications. No medication changes at this time as more time is needed to determine ongoing tolerability and efficacy. Plan is to continue to observe patient for response and side effects from medications, and ongoing monitoring and evaluation. [place] level prior to discharge. Next steps are for patient to meet with direct care counselor to plan a safe discharge plan and establish outpatient services for ongoing treatment. Patient to be referred for cannabis abuse outpatient treatment. Consider discharge if patient is in stable condition, safe, and has a safe discharge plan. PSYCHOTROPIC MEDICATION TREATMENT INFORMED CONSENT and RECOMMENDATIONS: Review nature of condition, diagnosis, and prognosis. Review nature and purpose of psychotropic medication treatment. Review type of psychotropic medications being ordered. Review risk and benefits of psychotropic medication treatment. Review probable length of time patient will need to take medications. Review risk and benefits of not undergoing psychotropic medication treatment. Review alternative treatments to psychotropic medications. Review psychotropic medications contraindications, drug-drug interactions, side effects, and importance of reporting any side effects to a psychiatric provider or nurse during inpatient hospitalization, and upon discharge to patients psychiatric outpatient provider, primary care provider, or other health intensive care unit registered nurse. Review importance of asking a nurse, psychiatric provider, or primary care provider any questions or problems concerning the psychotropic medications. Verify patient understands the information that has been provided, and understands, accepts, and agrees to psychotropic medications. Review patients safety plan and importance of patient to report to staff while hospitalized if patient is ever a danger to self/others, or unable to care for self, and upon discharge, the importance for patient to contact [facility] or [facility], or go to the nearest emergency room, if patient is ever a danger to self/others, or unable to care for self. Recommend that upon discharge patient establish medication management treatment with a psychiatric provider, establishes routine therapy appointments, and follow-up with primary care provider. Verify patient understands and agrees to these recommendations. 11/10/17 08:02 Subjective: Following up with patient for evaluation of mood instability, psychosis, and safety. With regard to discharge plan, patient states, "Yes, I have my apartment to return to and look forward to discharging, feel ready." Patient expresses no psychiatric symptoms and states to be in stable condition. Objective: Vital Signs Temp Pulse Resp BP Pulse Ox 36.8 C 92 16 132/80 H 97 11/09/17 06:00 11/10/17 06:00 11/10/17 06:00 11/10/17 06:00 11/10/17 06:00 NURSING REPORT: Consulted with nursing for update on patients progress in treatment. Nurses report patient is not a model patient; not engaged in treatment, is not attending groups, slept 9 hours, patient continues to be disruptive to unit, tore-up magazine over the weekend; mischievous, deceitful; is intermittently taking medications as prescribed with no report of side effects; staff did find lithium and Risperdal tabs in patients room over the weekend; patient reports no s/s of EPS/akathisia, denies SI/HI, A/V hallucinations, and delusions. The patient is an under-nourished male looking older than chronological age. Attire is inappropriate and dress is hospital garb, and is disheveled. Grooming status is inappropriate and disheveled. Ambulation is independent. Gait is normal and coordinated. Posture is normal. Eye contact is appropriate. Motor activity is appropriate; with no involuntary movements. Attitude is uncooperative and silly. Patient appears disinterested, and does not relate well to this interviewer. Language production is spontaneous. R/R/ V normal. Articulation is clear. Patient reports mood as okay with congruent affect. Patients thought process is linear and illogical. Associations are connected. Patient does not report suicidal/homicidal thoughts, ideas, or plans. Patient denies auditory, visual hallucinations. Patient denies delusions. Patient does not appear to be attending to internal stimuli. Patients attention and concentration are fair. Patient is oriented to person, place, time. Patients insight is poor. Patients judgment is poor. - Time Spent With Patient Time Spent With Patient: 15 minutes, met with patient individually. - Pending Discharge Pending Discharge Within 24 Hours: No Pending Discharge Within 48 Hours: No ICD10 Worksheet Patient Problems: Problems Problem Status Onset Nicotine dependence Active Cannabis use disorder, severe, in controlled environment Acute Cannabis withdrawal Acute
[2017-11-11] MEDS: NICOTINE POLACRILEX 2 MG GUM B PRN ×2 (09:00→12:09)
[2017-11-11] MEDS: RISPERIDONE 1 MG ODT TAB SL SCH (10:29)
--- NOTE | 2017-11-11 12:10 | BDS ---
[f rep st] BEHAVIORAL HEALTH DISCHARGE SUMMARY REASON FOR ADMISSION: From the ED note dated 10/29/2017, the patient presented to the ED secondary to grave disability. The patient reportedly was contacted by his mother today, who was concerned about his wellbeing. The patient has a history of bipolar disorder, by patient's report. The patient's medical suggested schizophrenia as an additional diagnosis. The patient reported he is typically followed by [facility] on an outpatient basis. The patient reported he does not take medications secondary to his personal choice. The patient denied suicidal and homicidal ideation. The patient denied acute medical complaints, denied trauma and denied active hallucinations. From the TLC evaluation dated 10/29/2017, the patient was agitated during evaluation, did not answer most of the TLC band maker's questions. The patient was laughing and grimacing when asked interview questions by the TLC band maker. The patient was admitted involuntarily on an M1 hold due to being gravely disabled due to mental illness. The patient was admitted for safety crisis stabilization and medication evaluation. 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 Nicotine dependence. ADMISSION PHYSICAL EXAM: The patient was seen on 10/30/2017, by Dr. Servin for an internal medicine consultation for medical clearance for inpatient behavioral health stay. Dr. Servin reported that he saw no medical contraindications to the patient's continued stay on the inpatient behavioral health unit or to any psychiatric medications or procedures. For further details and information, please refer to Dr. Servin's behavioral health consultation dated 10/30/2017. ADMISSION LABS: From the emergency department, CBC was within normal limits. The patient had a slightly low MHC and MCHC of no clinical significance. Serum chemistry revealed normal renal function electrolytes. Toxicology screen and the serum were negative for ethyl alcohol and in the urine was negative for any substances of abuse. Liver function tests from 10/29/2017, within normal limits except albumin elevated at 5.1. Fasting lipid panel from 10/31/2017, within normal limits except for HDL cholesterol elevated at 78. Hemoglobin A1c from 10/29/2017, was 5.6. MAJOR PROCEDURES OR TESTS: None. HOSPITAL COURSE: The most prominent symptoms and behaviors while the patient was here were agitation, irritability, insomnia; patient was tangential with delusional thoughts and grandiose thought content at time of admission. Target symptoms during hospitalization were jaime and psychosis. The treatment modalities utilized were milieu and group therapy. Risperdal M-tab 1 mg was started to target jaime and psychosis symptoms, was tolerated with no report of side-effects. Throughout the hospital stay Risperdal M-tab was titrated, based on the patient's response and tolerability, to 4 mg; was tolerated with no report of side-effects and with good response. The patient has improved considerably with no signs of psychiatric symptoms and no psychiatric symptoms expressed at discharge. The patient reports he has improved since admission, states to be in stable condition, feels safe to discharge and he contracts for safety. Patient's response to treatment was good. There were no adverse or unexpected results of treatment. The patient was safe throughout his stay. The treatment team consensus is the patient is in stable condition and is safe to discharge today. CONDITION AT DISCHARGE: Patient is in stable condition and is no longer a danger to self or others, and is not gravely disabled due to mental illness. Patient is no longer in need of inpatient level of care, and can be safely and effectively treated within the community. The patients level of risk at time of discharge is low based on the risk assessment below following this discharge summary. MSE: The patient is casually dressed and with good hygiene, and looks stated age. Patient is sitting, posture is upright, and position is relaxed. Patient appears awake, alert, and responds appropriately and reasonably during interview. Patient is engaged, relates well to interviewer, and emotional facial expression is appropriate to situation and changes appropriately with topic. Patient is cooperative, makes comfortable eye contact, and movements are voluntary, deliberate, coordinated, and smooth and even with no inappropriate movements. Patient makes laryngeal sounds effortlessly and shares conversation appropriately; pace of conversation is appropriate, and stream of talking is fluent; articulation is clear and understandable; word choice is effortless and appropriate for education level; completes sentences, occasionally pausing to think; rate and volume are appropriate for interview and setting. Patient reports mood as euthymic. Patients affect is stable with full variable range, congruent with mood, and appropriate to speech and circumstances. Patient has linear and logical thinking, with no loose associations, tangential thought, thought blocking, concrete thinking, or any other signs of formal thought disorder. Patient denies suicidal and homicidal ideation, and denies hallucinations and delusions. Patient appears to be a reliable historian with sound judgement and good insight into current condition. Patient has no apparent dysfunction in recent or remote memory noted , and no evidence of gross cognitive dysfunction noted at any point during the interview. DISCHARGE DIAGNOSES: Bipolar 1 disorder with mood-congruent psychotic features ; cannabis use disorder, severe; nicotine dependence; antisocial personality disorder. CURRENT MEDICATIONS: Risperidone 4 mg p.o. at bedtime. At the time of discharge, the patient requested a 30-day prescription with plan to follow up with his outpatient psychiatrist for ongoing medication evaluation. At time of discharge, prescription was reviewed with patient for accuracy and understanding. At time of discharge, the patient also requested Nicorette gum for nicotine dependence and withdrawal. The patient has expressed motivation to abstain from tobacco use. A prescription for 300 pieces for 30 days was given at time of discharge; was reviewed with the patient for accuracy and understanding. The patient reported that he understands the prescriptions. DISPOSITION: The patient left the hospital independently and voluntarily with plans to return to his apartment and plans to follow up for outpatient services including medication management and therapy at [facility]. FOLLOWUP: sales service coordinator reports the appropriate outpatient follow-up services have been established and outpatient appointments have been scheduled. The patient received written instructions with times and dates of outpatient follow-up appointments. The following follow-up recommendations were provided to the patient at discharge: Continue psychotropic medications as prescribed and attend appointments as scheduled. Report any side effects to a psychiatric outpatient provider, a primary care provider, or other health hearing care practitioner. Address any questions or problems concerning the psychotropic medications with a psychiatric outpatient provider, a primary care provider, or other health hearing care practitioner. Contact [facility] or [facility], or go to the nearest emergency room, if you are ever a danger to yourself/others, or unable to care for yourself. As soon as possible, establish a routine medication management treatment with a psychiatric provider, establish routine therapy appointments, and follow-up with a primary care provider. SMOKING CESSATION: The patient was provided a prescription of Nicorette gum at time of discharge and patient reports willingness and motivation to abstain from tobacco use. Patient plans to follow-up with his outpatient provider for ongoing support and treatment for tobacco cessation. SUBSTANCE TREATMENT: The patient was referred to his outpatient services for substance treatment and patient reports he plans to discuss treatment options with his outpatient providers. LEGAL COURSE: The patient was admitted on an M1 hold. During time of hospitalization, the patient was placed on a short-term certification. At time of discharge, short-term certification was terminated and patient discharged today independently and voluntarily. ATTITUDE AT TIME OF DISCHARGE: The patients attitude was positive at time of discharge, and patient reports looking forward to discharging today. The patient reports he feels safe to discharge, is no longer a danger to himself or others, is in stable condition, and contracts for safety. Patient states he will continue medications as prescribed, and establish medication management treatment with an outpatient provider after discharge. Patient reports he understands the information that has been provided to him, and he understands, accepts, and agrees to psychotropic medications. Patient describes internal protective factors as the coping skills he has learned while hospitalized here, and he plans to continue to practice these coping skills after discharge. LABS AND STUDIES: There were no pending labs or studies at time of discharge. ADVANCE DIRECTIVE: There was no Advance Directive on file, and patient was full code during hospitalization. The following psychotropic medication treatment informed consent and recommendations were provided to the patient at time of discharge. Patient reports he understands, accepts, and agrees to the information that has been provided. PSYCHOTROPIC MEDICATION TREATMENT INFORMED CONSENT and RECOMMENDATIONS: Review nature of condition, diagnosis, and prognosis. Review nature and purpose of psychotropic medication treatment. Review type of psychotropic medications being prescribed. Review risk and benefits of psychotropic medication treatment. Review probable length of time will need to take medications. Review risk and benefits of not undergoing psychotropic medication treatment. Review alternative treatments to psychotropic medications. Review psychotropic medications contraindications, side effects, and importance of reporting any side effects to a psychiatric provider, primary care provider, or other health hearing care practitioner. Review importance of her asking a psychiatric provider or primary care provider any questions or problems concerning the psychotropic medications. Review safety plan and the importance to contact [facility] or [facility] , or go to the nearest emergency room, if ever a danger to yourself/others, or unable to care for yourself. Recommend upon discharge to establish routine medication management treatment with a psychiatric provider, establish routine therapy appointments, and follow-up with a primary care provider. Verify patient understands, accepts, and agrees to the information that has been provided. /[id number]
== END 2017-11-11 12:40 | disposition home or self-care (01) | DRG 885 ==
LOC: BBEH 10-30 10:05
PROVIDERS: ADMIT Psychiatry & Neurology Psychiatry; ATTEND Registered Nurse
DX: F31.9 Bipolar disorder, unspecified (principal); F12.288 Cannabis dependence with other cannabis-induced disorder; F12.259 Cannabis dependence with psychotic disorder, unspecified; F17.210 Nicotine dependence, cigarettes, uncomplicated; B19.20 Unspecified viral hepatitis C without hepatic coma
CPT/HCPCS: 80305; G0480; J1630